=== PATIENT | male | born 1960 | race Caucasian/White ===

== ENCOUNTER → 2019-06-05 08:51 | Outpatient (CLI) | payer OTHER, SELFPAY ==
[2018-08-19 09:04] VITALS: BMI 31.9
--- NOTE | 2019-06-05 08:59 | MRI_ITS ---
STUDY: MRI CERVICAL SPINE WITH AND WITHOUT CONTRAST REASON FOR EXAM: Male, 58 years old. UPPER EXTREMITY WEAKNESS HEADACHES weakness since prev stroke 3 years ago , matamoros''s behind left eye, blurred vision, ? seizures, renal cancer 2005 TECHNIQUE: Standardized fat and water weighted pulse sequences were obtained in the sagittal and axial following administration of dotarem 18ml. COMPARISON: MRI of the cervical spine June 16, 2014, x-ray cervical spine June 13, 2015 FINDINGS: Normal foramen magnum and brainstem-cervical cord junction. Normal craniovertebral junction. Normal anterior atlantoaxial articulation. Normal odontoid process. There is straightening of the normal cervical lordosis. There is been prior surgical fusion with anterior cervical fusion plate across the C4-5 disc level. The vertebral bodies otherwise have an unremarkable appearance. C2-3: Normal endplates. Normal disc height, signal and morphology. Normal central canal and intervertebral neural foramina. C3-4: Normal endplates. Normal disc height, signal and morphology. Normal central canal and intervertebral neural foramina. C4-5: Normal endplates. Normal disc height, signal and morphology. Normal central canal and intervertebral neural foramina. C5-6: Normal endplates. Normal disc height, signal and morphology. Normal central canal and intervertebral neural foramina. Mild facet arthropathy. C6-7: Normal endplates. Disc height loss with a broad disc bulge is noted. This mildly flattens ventral aspect of the thecal sac but there is no evidence of significant central canal stenosis. AP diameter of the thecal sac is approximately 1 cm. There is minimal encroachment upon the neural foramina bilaterally. C7-T1: Normal endplates. Normal disc height, signal and morphology. Normal central canal and intervertebral neural foramina. Normal cervical cord. Normal visualized soft tissue structures. No abnormal enhancement MRI/Spine Cervical W/WO Contrast IMPRESSION: Intervening surgical intervention at C4-5 since prior study. No evidence of significant central or foraminal encroachment. No abnormal enhancement. Electronically Signed: Aishwarya Acevedo MD at 11:43 EST , Service support ,
--- NOTE | 2019-06-05 08:59 | MRI_ITS ---
STUDY: MRI BRAIN WITH AND WITHOUT CONTRAST REASON FOR EXAM: Male, 58 years old. WEAKNESS HEADACHES weakness since prev stroke 3 years ago , matamoros''s behind left eye, blurred vision, ? seizures, renal cancer 2005 TECHNIQUE: Standardized multiplanar fat and water weighted pulse sequences were obtained. dotarem 18ml iv was administered for the contrast portion of the examination. COMPARISON: CT brain October 13, 2015 FINDINGS: Normal size of the ventricles and extra-axial spaces for the patient''s age. There are multiple white matter hyperintensities, distributed throughout the deep white matter tracts of the cerebral hemispheres, consistent with moderate chronic white matter ischemic changes. There is a choroidal fissure cyst on the right, coronal image #16 series 4. There is no evidence for recent intracranial ischemia or other cause of cytotoxic edema on diffusion weighted imaging (DWI). Normal T2* images of the brain without demonstrated susceptibility artifact. There is no demonstrated hemosiderin stain. Normal bilateral basal ganglia. Normal thalami. There is no extra-axial fluid accumulation. Normal flow voids within the major intracranial circulation suggesting patency by spin echo criteria. Normal venous enhancement. There is no enhancing intra-axial or extra-axial abnormality. Normal sella turcica, pituitary gland, infundibular stalk, optic chiasm and hypothalamus. Normal tectal plate and pineal gland. Normal midbrain, vilma and medulla. Small old focal area of encephalomalacia, old infarct is noted in association with the posterior superior left cerebellar hemisphere. Normal basal cisterns. Normal bilateral temporal bones. Normal bilateral internal auditory canals. No demonstrated orbital abnormality, within the constraints of a routine brain study. Normal visualized paranasal sinuses. Normal calvarium and skull base. Normal visualized soft tissue structures. Normal visualized upper cervical spine. MRI/Brain W/WO Contrast IMPRESSION: Involutional changes of the brain, as described above. Old left superior cerebellar focal area of encephalomalacia, infarct. Right choroidal fissure cyst. No acute diffusion abnormality. No mass. No abnormal enhancement. Electronically Signed: Aishwarya Acevedo MD at 11:37 EST , Service support ,
[2019-06-05 11:30] LABS: CREATININE FINGERSTICK 1.1 mg/dL (0.70-1.30); EGFR FINGERSTICK > 60.0000 mL/min (>60)
== END ==
PROVIDERS: Family Provider Student in an Organized Health Care Education/Training Program; PCP Student in an Organized Health Care Education/Training Program; Referring Provider Clinical Nurse Specialist Acute Care; Visit Provider Clinical Nurse Specialist Acute Care
DX: R51 Headache (principal); R20.2 Paresthesia of skin; R29.898 Other symptoms and signs involving the musculoskeletal system; Z85.9 Personal history of malignant neoplasm, unspecified
CPT/HCPCS: 70553; 72156; A9575

== ENCOUNTER 2020-01-22 16:03 | Emergency (ER) | payer OTHER, SELFPAY ==
[2018-08-19 09:04] VITALS: BMI 31.9
[2020-01-22 16:05] VITALS: BP 168/90; PULSE 76; RESP 16; TEMP 36.6; O2SAT 97; BMI 31.6
[2020-01-22 16:07] VITALS: BP 162/110; PULSE 74; RESP 18; TEMP 36.6; O2SAT 96
--- NOTE | 2020-01-22 16:42 | EKG12_ITS ---
Test Reason : Blood Pressure : / mmHG Vent. Rate : 075 BPM Atrial Rate : 075 BPM P-R Int : 192 ms QRS Dur : 092 ms QT Int : 412 ms P-R-T Axes : 048 -11 060 degrees QTc Int : 460 ms Normal sinus rhythm Normal ECG Confirmed by NOLAN STONER MD ([id number]), acquisition editor TAYLOR SAN ([id number] on 01/25/2020 1:06:01 PM Referred By: AAKASH Confirmed By:NOLAN STONER MD
--- NOTE | 2020-01-22 16:42 | RAD_ITS ---
STUDY: X-RAY CHEST REASON FOR EXAM: Male, 59 years old. Chest pain. TECHNIQUE: Single AP portable view of the chest. COMPARISON: None. FINDINGS: Status post anterior cervical discectomy and fusion lower cervical spine. Status post median sternotomy. The lungs are clear and expanded. There is no demonstrated pleural abnormality. Normal size heart. Normal mediastinum and rob. Normal visualized pulmonary arteries. Normal visualized aortic arch and descending thoracic aorta. Normal visualized thoracic spine. Normal visualized ribs, clavicles, and shoulders. There is no demonstrated abnormality of the visualized soft tissue structures of the upper abdomen. RAD/Chest 1 View (Portable) IMPRESSION: No active disease. Electronically Signed: Gallo Nelson MD at 17:50 EDT Tel , Service support ,
[2020-01-22] MEDS: Lidocaine Jelly 2% 20 ML Syringe (URO-JET) 20 APPLIC TOPICAL (17:03)
[2020-01-22 17:07] VITALS: BP 174/114; PULSE 80; RESP 18; TEMP 36.6; O2SAT 95
[2020-01-22 17:13] LABS: Absolute Neutrophil Count 10.9 X10^3/uL (2.0-7.7); Basophil# 0.03 X10^3/uL; Basophil% 0.2 % (0-1); Eosinophil# 0.34 X10^3/uL; Eosinophils% 2.4 % (0-5); Hematocrit 38.8 % (40-54); Hemoglobin 13.4 g/dL (13.0-16.5); Lymphocyte % 12.1 % (19-41); Mean Corp Hgb Conc 34.5 g/dL (32-36); Mean Corpuscular Hgb 28.6 pg (27.0-32.0); Mean Corpuscular Volume 82.7 fL (80-94); Mean Platelet Vol. 10.7 fl (6.2-12.0); Monocyte% 7.1 % (0-10); NRBC Flagged by Analyzer 0 % (0-5); Neutrophil # 10.92 X10^3/uL (2.7-7.7); Neutrophil % 77.6 % (47-70); Platelet Count 175 K/mm3 (150-450); RBC Distribution Width CV 12.5 % (11.6-14.6); RBC Distribution Width SD 37.8 fl (35.1-43.9); Red Blood Count 4.69 M/mm3 (4.6-6.2); White Blood Count 14.1 K/mm3 (4.4-11.0)
[2020-01-22 17:34] LABS: ALB/GLOB Ratio 0.9 RATIO (0.9-2.4); AST(SGOT) 11 U/L (15-37); Alanine Aminotransfer ALT/SGPT 18 U/L (16-61); Albumin, Serum 3.4 g/dL (3.2-5.0); Alkaline Phosphatase 51 U/L (45-117); Anion Gap 10 (5-15); BUN 43 mg/dL (7-18); BUN/Creat Ratio 7.3 RATIO (10-20); Calcium,Total 8.4 mg/dL (8.5-10.1); Chloride 105 mmol/L (98-107); Creatinine, Serum 5.86 mg/dL (0.70-1.30); EST Glomerular Filtration Rate 11 mL/min (>60); Est Glom Filt Rate - Afr Amer 13 mL/min (>60); Estimated Creatinine Clearance 11.52 ml/min; Globulin 3.6 g/dL (2.2-4.2); Glucose 128 mg/dL (74-106); Potassium 3.4 mmol/L (3.5-5.1); Sodium Level 139 mmol/L (136-145)
--- NOTE | 2020-01-22 18:00 | CT_ITS ---
STUDY: CT ABDOMEN AND PELVIS WITHOUT CONTRAST REASON FOR EXAM: Male, 59 years old. RT FLANK PAIN,URINE RETENTION-PT HASN''T VOIDED IN 30 HRS -- HX:HTN,HLD,KIDNEY CANCER WITH LT NEPHRECTOMY,HERNIA REPAIR,HEART STENT,DISSECTION REPAIR RADIATION DOSAGE (If Supplied By Facility): CTDIvol = ( 11.82 ) mGy, DLP = ( 702.83 ) mGycm TECHNIQUE: Transaxial images were obtained from the dome of the diaphragm to the symphysis pubis without oral contrast, and without intravenous contrast. Sagittal and coronal images were reconstructed. Individualized dose optimization techniques were used for this CT. COMPARISON: 10/03/2015 FINDINGS: The visualized lung bases are unremarkable. The visualized portions of the heart are within normal limits. Multiple small hepatic lesions likely consistent with cysts. There are multiple gallstones. Normal spleen. Normal pancreas. Normal bilateral adrenal glands. 2 mm obstructing stone of the distal right ureter just proximal to the ureterovesical junction with mild ureteral dilatation, hydronephrosis, and perinephric edema. Status post left nephrectomy. Normal visualized stomach. Normal small intestine. Normal colon. The appendix is visualized and appears normal. Normal abdominal aorta. Normal inferior vena cava. Normal retroperitoneum. Normal urinary bladder. Normal abdominal wall. Normal osseous structures. CT/Abdomen/Pelvis without Cont IMPRESSION: 2 mm obstructing stone of the distal right ureter just proximal to the ureterovesical junction with mild ureteral dilatation and hydronephrosis. Electronically Signed: Gallo Nelson MD at 18:50 EDT Tel , Service support ,
[2020-01-22] MEDS: Morphine 4 MG/ML Syringe IV (18:08)
[2020-01-22 18:09] VITALS: BP 188/95; PULSE 84; RESP 16; O2SAT 97
[2020-01-22 19:07] VITALS: BP 175/108; PULSE 82; RESP 18; TEMP 36.6; O2SAT 96
--- NOTE | 2020-01-22 19:54 | ED.RN ---
ATTEMPTED TO CALL REPORT. HS SHIFT IS IN RAPID RESPONSE, THIS RN WAS ASKED TO CALL BACK LATER.
--- NOTE | 2020-01-22 20:04 | ED.VISSUMM ---
- ER Visit Summary Date of Service: 01/22/20 Chief Complaint: Not urinating History of Present Illness: The patient is a [address] Wright. He has a history of a left nephrectomy in 2006 and as far as he knows he is cancer free. He reports that he does not see a urologist or guide excursion. States that he last urinated yesterday at 10 AM. States he has a suprapubic pressure the 7-10 worsened to a 10 currently. Is worsened by nothing relieved by nothing. He also reports that he has a sharp right flank pain is 8 out of 10 at worst and to a out of 10 currently. Patient reports is been nausea and vomited twice. No blood in his emesis. He has had chills. He denies fever. Patient reports he had an episode of chest pain 2 weeks ago while he was at rest. It is a sharp pain last approximately 1 hour. It was 4-10 at worst and is pain-free currently. He reports he has not had any pain since that time. That states that he was diaphoretic and short of breath at that time. He denies any nausea or vomiting. Physical Examination: Vitals: Stable. Afebrile. General: Well-nourished and well-developed. Head: Normocephalic atraumatic. Neck: Supple, no lymphadenopathy. No JVD. Nontender. Cardiovascular: Regular rate and rhythm. No murmurs. Respiratory: No respiratory distress. Clear to auscultation bilaterally. Abdominal: Soft, moderate suprapubic tenderness to palpation, nondistended, normal bowel sounds. No guarding, rebound, or peritoneal signs. Back: Nontender. No CVA tenderness. Extremities: Nontender, no edema. Skin: Normal color, no rash. Neurologic: Alert and oriented ?3. Cranial nerves II through XII are intact. Normal strength and sensation. Psych: Normal affect. Test Results: EKG is sinus at [address] changes. Troponin is negative. LFTs are marked for an AST of 11. Chem-7 is marked potassium 3.4, glucose 128, UN 43, creatinine of 5.86. His creatinine since 2016 is been 1.28 at the highest. CBC shows a white count of 14.1 with hematocrit of 38.8, segmented for 78, lymphs at 12. Chest x-ray shows no acute disease. Clinical Impression(s) from Imaging Studies Chest X-Ray 01/22/20 16:42 IMPRESSION: No active disease. Electronically Signed: Gallo Nelson MD at 17:50 EDT Tel , Service support , Abdomen/Pelvis CT 01/22/20 18:00 IMPRESSION: 2 mm obstructing stone of the distal right ureter just proximal to the ureterovesical junction with mild ureteral dilatation and hydronephrosis. Electronically Signed: Gallo Nelson MD at 18:50 EDT Tel , Service support , Emergency Department Course and Treatment: Patient was given a dose of morphine and Zofran IV. He was given a liter of normal saline. He is resting comfortably. Treatment Plan: The patient was discussed with Dr. eusebio mayer. He reports that he will not be in town with patient needs intervention. He will discussed with the hospitalist who asked the patient be transferred to a tertiary care center. He chose [facility]. He was discussed with the physician there who is accepted him in transfer. Disposition: Transferred in serious condition. Impression: 1. Right ureterolithiasis. 2. Acute renal failure. 3. History of nephrectomy on left. This note was generated with [employer] dictation software. It may contain incorrect words, spelling, and punctuation that were not noted in review of the chart prior to signing ED Disposition - Plan for ED Patient: Referrals: Ryan Wright DO [Primary Care Provider] -
--- NOTE | 2020-01-22 21:04 | ED.RN ---
OK TO DC SEPSIS SCREENING.
[2020-01-22] MEDS: ALPRAZolam 0.5 MG Tablet PO (21:25)
[2020-01-22 22:00] VITALS: BP 141/80; PULSE 76; RESP 17; TEMP 36.9; O2SAT 97
== END 2020-01-22 22:44 | disposition short-term general hospital (02) ==
PROVIDERS: Emergency Provider Emergency Medicine; PCP Student in an Organized Health Care Education/Training Program
DX: N13.2 Hydronephrosis with renal and ureteral calculous obstruction (principal); N17.9 Acute kidney failure, unspecified; Z90.5 Acquired absence of kidney; R07.9 Chest pain, unspecified; I25.10 Atherosclerotic heart disease of native coronary artery without angina pectoris; I10 Essential (primary) hypertension; Z79.899 Other long term (current) drug therapy
CPT/HCPCS: 51702; 71045; 74176; 80053; 84484; 85025; 93005; 96361; 96374; 99285; J7040; A4216

== ENCOUNTER → 2020-01-29 | Outpatient (CLI) | payer OTHER, SELFPAY ==
[2020-01-22 16:05] VITALS: BMI 31.6
[2020-01-29 11:30] LABS: Anion Gap 3 (5-15); BUN 25 mg/dL (7-18); BUN/Creat Ratio 18.7 RATIO (10-20); Calcium,Total 8.8 mg/dL (8.5-10.1); Chloride 109 mmol/L (98-107); Creatinine, Serum 1.34 mg/dL (0.70-1.30); EST Glomerular Filtration Rate 58 mL/min (>60); Est Glom Filt Rate - Afr Amer 70 mL/min (>60); Glucose 95 mg/dL (74-106); Potassium 3.8 mmol/L (3.5-5.1); Sodium Level 140 mmol/L (136-145)
== END | disposition home or self-care (01) ==
PROVIDERS: PCP Student in an Organized Health Care Education/Training Program
DX: N13.5 Crossing vessel and stricture of ureter without hydronephrosis (principal)
CPT/HCPCS: 36415; 80048

== ENCOUNTER → 2020-02-24 08:55 | Outpatient (CLI) | payer OTHER, SELFPAY ==
[2020-02-24 10:04] LABS: 24HR. Urine Creatinine 1.61 g/24 HR (0.90-2.10)
[2020-02-24 10:05] LABS: 24Hr.Lytes Total Volume 1175 mL; Sodium 24 HR UR 166 mmol/24h (40-220); Urine Sodium 141 mmol/L (Not Establ.)
[2020-02-24 10:15] LABS: Anion Gap 5 (5-15); BUN 19 mg/dL (7-18); BUN/Creat Ratio 17.1 RATIO (10-20); Calcium,Total 8.8 mg/dL (8.5-10.1); Chloride 109 mmol/L (98-107); Creatinine, Serum 1.11 mg/dL (0.70-1.30); EST Glomerular Filtration Rate 72 mL/min (>60); Est Glom Filt Rate - Afr Amer 87 mL/min (>60); Glucose 111 mg/dL (74-106); Potassium 3.7 mmol/L (3.5-5.1); Sodium Level 141 mmol/L (136-145)
[2020-02-25 09:36] LABS: Uric Acid, Ur 40.7 mg/dL (Not Estab.)
[2020-02-25 10:06] LABS: Uric Acid, 24Ur 478.2 mg/24 hr (182.4-936.8)
[2020-03-02 09:23] LABS: Urine Chloride 158 mmol/L (Not Establ.); Urine Chloride / 24 Hours 186 mmol/24h (110-250); Urine Potassium/ 24 Hours 72.9 mmol/24h (25-125)
== END ==
PROVIDERS: PCP Student in an Organized Health Care Education/Training Program; Referring Provider Internal Medicine Nephrology; Visit Provider Internal Medicine Nephrology
DX: N18.2 Chronic kidney disease, stage 2 (mild) (principal); N13.30 Unspecified hydronephrosis
CPT/HCPCS: 36415; 80048; 81050; 82436; 82570; 84133; 84300; 84560

== ENCOUNTER → 2020-02-26 | Outpatient (CLI) | payer OTHER, SELFPAY | END | disposition home or self-care (01) | PROVIDERS: PCP Student in an Organized Health Care Education/Training Program | DX: N13.30 Unspecified hydronephrosis (principal) ==

== ENCOUNTER 2021-09-20 12:03 | Outpatient (CLI) | payer OTHER, SELFPAY ==
[2021-09-20 12:30] LABS: Absolute Lymphocyte Count 1.75 X10^3/uL (0.83-4.51); Absolute Neutrophil Count 7.6 X10^3/uL (2.0-7.7); Basophil# 0.04 X10^3/uL; Basophil% 0.4 % (0-1); Eosinophil# 0.67 X10^3/uL; Eosinophils% 6.2 % (0-5); Hematocrit 42.6 % (40-54); Hemoglobin 14.7 g/dL (13.0-16.5); Lymphocyte # 1.75 X10^3/ul (0.83-4.51); Lymphocyte % 16.1 % (19-41); Mean Corp Hgb Conc 34.5 g/dL (32-36); Mean Corpuscular Hgb 28.7 pg (27.0-32.0); Mean Platelet Vol. 10.3 fl (6.2-12.0); Monocyte# 0.78 X10^3/uL; Monocyte% 7.2 % (0-10); NRBC Flagged by Analyzer 0 % (0-5); Neutrophil # 7.61 X10^3/uL (2.7-7.7); Neutrophil % 69.7 % (47-70); Platelet Count 223 K/mm3 (150-450); RBC Distribution Width SD 39.2 fl (35.1-43.9); Red Blood Count 5.13 M/mm3 (4.6-6.2); White Blood Count 10.9 K/mm3 (4.4-11.0)
[2021-09-20 13:18] LABS: AST(SGOT) 13 U/L (15-37); Alanine Aminotransfer ALT/SGPT 17 U/L (16-61); Albumin, Serum 3.4 g/dL (3.2-5.0); Alkaline Phosphatase 41 U/L (45-117); Anion Gap 5 (5-15); BUN 21 mg/dL (7-18); BUN/Creat Ratio 17.1 RATIO (10-20); Bilirubin, Direct 0.15 mg/dL (0.00-0.30); Calcium,Total 9.6 mg/dL (8.5-10.1); Chloride 108 mmol/L (98-107); Creatinine, Serum 1.23 mg/dL (0.70-1.30); EST Glomerular Filtration Rate 63 mL/min (>60); Est Glom Filt Rate - Afr Amer 77 mL/min (>60); Globulin 3.5 g/dL (2.2-4.2); Glucose 91 mg/dL (74-106); Magnesium 2.2 mg/dL (1.6-2.6); Potassium 4.5 mmol/L (3.5-5.1); Protein, Total 6.9 g/dL (6.4-8.2); Sodium Level 141 mmol/L (136-145); Thyroid Stim Hormone (TSH) 1.34 uIU/mL (0.358-3.74)
== END 2021-09-20 23:59 | disposition home or self-care (01) ==
LOC: LAB 12:04
PROVIDERS: PCP Student in an Organized Health Care Education/Training Program; Referring Provider Internal Medicine Cardiovascular Disease; Visit Provider Internal Medicine Cardiovascular Disease
DX: I10 Essential (primary) hypertension (principal); Z95.5 Presence of coronary angioplasty implant and graft
CPT/HCPCS: 36415; 80048; 80076; 83735; 84443; 85025

== ENCOUNTER → 2021-11-13 | Outpatient (CLI) | payer OTHER, SELFPAY ==
--- NOTE | 2021-11-13 12:47 | ECHOD_ITS ---
Reason For Study: Assess LV function Procedure This was a 2D Doppler, Color Flow transthoracic echocardiogram. Exam performed in department. Left Ventricle Normal LV size. Mild concentric left ventricular hypertrophy. Left ventricular systolic function is normal. The estimated ejection fraction is 60 %. Stage 1 diastolic dysfunction. No regional wall motion abnormalities noted. Right Ventricle Normal right ventricle. Normal systolic function. Atria Normal left atrium. Normal right atrium. Mitral Valve Normal mitral valve. Mild (1+) eccentric mitral valve insufficiency. Tricuspid Valve Normal tricuspid valve. Mild tricuspid valve insufficiency. Aortic Valve Normal aortic valve. Trisinus/trileaflet aortic valve. Trivial eccentric aortic valve insufficiency. Pulmonic Valve Normal pulmonic valve. Great Vessels Normal aortic root. Pericardium/Pleural No pericardial effusion. MMode/2D Measurements & Calculations LVIDd: 4.0 cm IVSd: 1.4 cm Ao root diam: 3.2 cm LVIDs: 2.6 cm LVPWd: 1.3 cm RVDd: 3.6 cm FS: 35.5 % LAV(MOD-bp): 51.4 ml LVAd ap4: 28.8 cm2 LVAd ap2: 26.0 cm2 LAV(MOD-bp) Indexed: 27.2 ml/m2 LVLd ap4: 8.2 cm LVLd ap2: 8.6 cm LAV(MOD-sp2): 55.5 ml EDV(MOD-sp4): 84.9 ml EDV(MOD-sp2): 67.8 ml LAV(MOD-sp4): 42.4 ml EDV(sp4-el): 85.8 ml EDV(sp2-el): 67.0 ml LVAs ap4: 15.9 cm2 LVAs ap2: 14.1 cm2 LVLs ap4: 7.1 cm LVLs ap2: 7.3 cm ESV(MOD-sp4): 31.4 ml ESV(MOD-sp2): 23.9 ml ESV(sp4-el): 30.3 ml ESV(sp2-el): 23.1 ml EF(MOD-sp4): 63.0 % EF(MOD-sp2): 64.8 % EF(sp4-el): 64.6 % SV(MOD-sp4): 53.6 ml SV(MOD-sp2): 43.9 ml SV(sp4-el): 55.4 ml LA dimension(2D): 5.0 cm LA A4 area: 15.5 cm2 RA A4 area: 15.3 cm2 Doppler Measurements & Calculations MV E max lázaro: 88.8 cm/sec Lat Peak E' Lázaro: 9.9 cm/sec Med Peak E' Lázaro: 6.7 cm/sec MV A max lázaro: 98.2 cm/sec E/E' lat: 9.0 E/E' med: 13.3 MV E/A: 0.90 Ao V2 max: 116.4 cm/sec AI max lázaro: 391.4 cm/sec PA V2 max: 134.0 cm/sec Ao max P.4 mmHg AI max P.4 mmHg AI dec slope: 205.2 cm/sec2 AI P1/2t: 558.8 msec TR max lázaro: 206.6 cm/sec TR max P.2 mmHg ECHO/Echo Complete Interpretation Summary Normal LV size. Left ventricular systolic function is normal. The estimated ejection fraction is 60 %. Mild concentric left ventricular hypertrophy. Mild tricuspid valve insufficiency. Stage 1 diastolic dysfunction. Ordering Physician: Quinten Hall Referring Physician: Ryan Wright Performed By: Rose Shea RDCS
== END | disposition home or self-care (01) ==
PROVIDERS: PCP Student in an Organized Health Care Education/Training Program; Referring Provider Internal Medicine Cardiovascular Disease; Visit Provider Internal Medicine Cardiovascular Disease
DX: I25.10 Atherosclerotic heart disease of native coronary artery without angina pectoris (principal); I10 Essential (primary) hypertension; E78.00 Pure hypercholesterolemia, unspecified; E78.5 Hyperlipidemia, unspecified; R53.83 Other fatigue; R06.00 Dyspnea, unspecified; Z98.890 Other specified postprocedural states; Z86.79 Personal history of other diseases of the circulatory system
CPT/HCPCS: 93306

== ENCOUNTER → 2021-12-18 | Outpatient (CLI) | payer OTHER, SELFPAY ==
[2021-12-18 17:32] LABS: Anion Gap 8 (5-15); BUN 26 mg/dL (7-18); BUN/Creat Ratio 18.8 RATIO (10-20); Calcium,Total 8.9 mg/dL (8.5-10.1); Chloride 106 mmol/L (98-107); Creatinine, Serum 1.38 mg/dL (0.70-1.30); EST Glomerular Filtration Rate 55 mL/min (>60); Est Glom Filt Rate - Afr Amer 67 mL/min (>60); Glucose 130 mg/dL (74-106); Potassium 3.3 mmol/L (3.5-5.1); Sodium Level 140 mmol/L (136-145)
== END | disposition home or self-care (01) ==
LOC: LAB 15:46
PROVIDERS: PCP Student in an Organized Health Care Education/Training Program; Referring Provider Internal Medicine Cardiovascular Disease; Visit Provider Internal Medicine Cardiovascular Disease
DX: M79.10 Myalgia, unspecified site (principal); R53.83 Other fatigue; R06.00 Dyspnea, unspecified; I25.10 Atherosclerotic heart disease of native coronary artery without angina pectoris; Z95.5 Presence of coronary angioplasty implant and graft; Z98.890 Other specified postprocedural states; Z86.79 Personal history of other diseases of the circulatory system
CPT/HCPCS: 36415; 80048

== ENCOUNTER → 2022-01-04 | Outpatient (CLI) | payer OTHER, SELFPAY ==
[2022-01-04 12:42] LABS: Anion Gap 6 (5-15); BUN 22 mg/dL (7-18); BUN/Creat Ratio 17.5 RATIO (10-20); Calcium,Total 8.9 mg/dL (8.5-10.1); Chloride 106 mmol/L (98-107); Creatinine, Serum 1.26 mg/dL (0.70-1.30); EST Glomerular Filtration Rate 61 mL/min (>60); Est Glom Filt Rate - Afr Amer 74 mL/min (>60); Glucose 101 mg/dL (74-106); Sodium Level 140 mmol/L (136-145)
== END | disposition home or self-care (01) ==
LOC: LAB 11:04
PROVIDERS: PCP Student in an Organized Health Care Education/Training Program; Visit Provider Physician Assistant Medical
DX: I10 Essential (primary) hypertension (principal)
CPT/HCPCS: 36415; 80048

== ENCOUNTER → 2022-09-07 | Outpatient (CLI) | payer OTHER, SELFPAY ==
[2022-09-07 08:50] LABS: Absolute Lymphocyte Count 1.98 X10^3/uL (0.83-4.51); Absolute Neutrophil Count 6.9 X10^3/uL (2.0-7.7); Basophil# 0.06 X10^3/uL; Basophil% 0.6 % (0-1); Eosinophil# 0.84 X10^3/uL; Eosinophils% 7.9 % (0-5); Hematocrit 42.2 % (40-54); Hemoglobin 14.4 g/dL (13.0-16.5); Lymphocyte # 1.98 X10^3/ul (0.83-4.51); Lymphocyte % 18.7 % (19-41); Mean Corp Hgb Conc 34.1 g/dL (32-36); Mean Corpuscular Hgb 29.4 pg (27.0-32.0); Mean Corpuscular Volume 86.3 fL (80-94); Mean Platelet Vol. 10.4 fl (6.2-12.0); Monocyte# 0.71 X10^3/uL; Monocyte% 6.7 % (0-10); NRBC Flagged by Analyzer 0 % (0-5); Neutrophil # 6.94 X10^3/uL (2.7-7.7); Neutrophil % 65.5 % (47-70); Platelet Count 222 K/mm3 (150-450); RBC Distribution Width SD 40.5 fl (35.1-43.9); Red Blood Count 4.89 M/mm3 (4.6-6.2); White Blood Count 10.6 K/mm3 (4.4-11.0)
[2022-09-07 09:12] LABS: Hemoglobin A1c 5.2 % (3.8-5.6)
[2022-09-07 09:21] LABS: AST(SGOT) 9 U/L (15-37); Alanine Aminotransfer ALT/SGPT 15 U/L (16-61); Albumin, Serum 3.5 g/dL (3.2-5.0); Alkaline Phosphatase 47 U/L (45-117); Anion Gap 5 (5-15); BUN 23 mg/dL (7-18); BUN/Creat Ratio 17.7 RATIO (10-20); Calcium,Total 9.4 mg/dL (8.5-10.1); Chloride 104 mmol/L (98-107); Cholesterol 226 mg/dL (200); EST Glomerular Filtration Rate 59 mL/min (>60); Est Glom Filt Rate - Afr Amer 72 mL/min (>60); Globulin 3.6 g/dL (2.2-4.2); Glucose 108 mg/dL (74-106); High Density Lipoprotein 38 mg/dL; Magnesium 2.2 mg/dL (1.6-2.6); Potassium 3.3 mmol/L (3.5-5.1); Protein, Total 7.1 g/dL (6.4-8.2); Sodium Level 141 mmol/L (136-145); T4 Free Direct 1.06 ng/dL (0.76-1.46); Thyroid Stim Hormone (TSH) 1.26 uIU/mL (0.358-3.74); Triglycerides 249 mg/dL; Very Low Density Lipoprotein 50 mg/dL (5-40)
[2022-09-07 09:25] LABS: Vitamin B12 425 pg/mL (211-911); Vitamin D,25 Hydroxy 29.7 ng/mL
== END | disposition home or self-care (01) ==
PROVIDERS: PCP Student in an Organized Health Care Education/Training Program; Visit Provider Student in an Organized Health Care Education/Training Program
DX: Z00.00 Encounter for general adult medical examination without abnormal findings (principal); E78.2 Mixed hyperlipidemia; R73.01 Impaired fasting glucose
CPT/HCPCS: 36415; 80053; 80061; 82306; 82607; 83036; 83735; 84439; 84443; 85025

== ENCOUNTER → 2023-08-07 | Outpatient (CLI) | payer OTHER, SELFPAY ==
[2023-08-07 16:15] LABS: Hematocrit 43.1 % (40-54); Hemoglobin 14.5 g/dL (13.0-16.5); Mean Corp Hgb Conc 33.6 g/dL (32-36); Mean Corpuscular Hgb 28.5 pg (27.0-32.0); Mean Corpuscular Volume 84.8 fL (80-94); Mean Platelet Vol. 10.7 fl (6.2-12.0); Platelet Count 276 K/mm3 (150-450); RBC Distribution Width CV 12.8 % (11.6-14.6); RBC Distribution Width SD 39.4 fl (35.1-43.9); Red Blood Count 5.08 M/mm3 (4.6-6.2)
[2023-08-07 17:22] LABS: Anion Gap 4 (5-15); BUN 25 mg/dL (7-18); BUN/Creat Ratio 16.4 RATIO (10-20); Calcium,Total 9.3 mg/dL (8.5-10.1); Chloride 108 mmol/L (98-107); Creatinine, Serum 1.52 mg/dL (0.70-1.30); EST Glomerular Filtration Rate 49 mL/min (>60); Est Glom Filt Rate - Afr Amer 60 mL/min (>60); Glucose 109 mg/dL (74-106); Potassium 3.8 mmol/L (3.5-5.1); Sodium Level 141 mmol/L (136-145)
== END | disposition home or self-care (01) ==
PROVIDERS: PCP Student in an Organized Health Care Education/Training Program; Referring Provider Internal Medicine Interventional Cardiology; Visit Provider Internal Medicine Interventional Cardiology
DX: I25.119 Atherosclerotic heart disease of native coronary artery with unspecified angina pectoris (principal)
CPT/HCPCS: 36415; 80048; 85027

== ENCOUNTER → 2023-08-27 | Outpatient (CLI) | payer OTHER, SELFPAY ==
--- OUTSIDE RECORDS SUMMARY | 2023-08-27 06:27 | XMS RPT_ITS | CCD ---
Author Name Unknown Address [address] [place] [address] Organization [facility] Care Team Providers Care Technology Officer Name Role Phone Samira Muñoz Unavailable Unavailable Roverto Atkinson Unavailable Unavailable Ryan Mesa Unavailable Unavailable Tanphaichitr, Natthavat Unavailable Unavaila Bon Garduno Unavailable Keron Butler Unavailable Unavailable Marisela Romero S Unavailable Unavailable Bebeto Oshea Unavailable Unavailable Ryan Mesa Primary Care Provider Unavail able Tanphaichitr, Natthavat Unavailable Unavaila Bon Garduno Unavailable Keron Butler Unavailable Unavailable Marisela Romero S Unavailable Unavailable Bebeto Oshea F Unavailable Unavailable Unavailable Primary Care Provider Unavailabl e Ryan Mesa Primary Care Provider RYAN MESA Referring Unavailable RYAN MESA Primary Care Unavailable AN GARCIA JR. Attending Unavail able Ryan Mesa DO Primary Care Provider Ryan Mesa DO Primary Care Provider RYAN MESA Attending Unavailable RYAN MESA Primary Care Unavailable Ryan Mesa Primary Care Provider PEG REIS Attending Unavailable RYAN MESA Primary Care Unavailable PEG REIS Admitting Unavailable PEG REIS Attending Unavailable RYAN MESA Primary Care Unavailable Allergies Allergy Classification Reported Allergen(s) Allergy Type Date of Onset Reaction(s) Facility (2 sources) amLODIPine drug allergy 03-01-20 16 High BP/confusion [facility] Work Phone: (2 sources) Gluten drug allergy 10-25-19 16 Vomiting [facility] Work Phone: (14 sources) metoprolol drug allergy 10-25-19 16 HIVES [facility] Work Phone: (20 sources) sertraline drug allergy 10-10-19 16 Hives, Confusion, Dizzy/Vertigo, Drowsy/Sedated , Other (See Comments) [facility] Work Phone: (2 sources) Sulfonamides (Antibiotic) drug allergy 03-01-20 16 mental status changes [facility] Work Phone: (18 sources) carvedilol Drug Allergy 10-04-19 18 [facility] Work Phone: (20 sources) Erythromycin; Translations: [ERYTHROMYCIN] Drug Allergy 02-05-20 06 Headache, Hives [facility] Work Phone: (18 sources) hydrALAZINE Drug Allergy 10-04-19 18 [facility] Work Phone: (16 sources) Lisinopril Drug Allergy 10-04-19 18 [facility] Work Phone: (20 sources) NIFEdipine; Translations: [NIFEDIPINE] Drug Allergy 01-20-20 14 Vomiting [facility] Work Phone: (18 sources) Sulfonamides (Antibiotic) Propensity to adverse reactions to drug 03-01-20 16 Hives, Confusion, Headache, Other (See Comments) [facility] Work Phone: (16 sources) amLODIPine; Translations: [AMLODIPINE] Drug Allergy 02-24-20 14 GI Upset [place] (3 sources) Angiotensin Converting Enzyme ([place]) Inhibitors; Translations: [PERNELL INHIBITORS] Propensity to adverse reactions to drug 07-06-19 15 [place] (2 sources) Wheat gluten extract Drug Allergy 10-25-19 16 [facility], [place] (3 sources) Angiotensin-conver ting enzyme inhibitor agent Drug Intolerance 07-06-19 15 GI Upset [facility] Work Phone: (3 sources) ANTIHISTAMINES - ALL [Other] Propensity to adverse reactions 03-03-20 08 [facility] Work Phone: (3 sources) BLOOD PRESSURE MEDICATIONS [Other] Propensity to adverse reactions 05-07-20 05 [facility] (3 sources) DEPRESSION MEDICATIONS [Other] Propensity to adverse reactions 05-07-20 05 [facility] (1 source) OTHER; Translations: [OTHER] Propensity to adverse reactions (disorder) 03-03-20 08 [facility] (10 sources) Angiotensin-conver ting enzyme inhibitor agent Drug Intolerance 07-06-19 15 [facility] [employer] (10 sources) Gluten Propensity to adverse reactions 10-25-19 16 [facility] [employer] [facility] (10 sources) HMG-CoA reductase inhibitor Drug Allergy 09-21-19 22 [facility] [employer] [facility] (10 sources) Nifedipine Propensity to adverse reactions 01-20-20 14 [facility] [employer] (10 sources) Sulfonamides (Antibiotic) Drug Intolerance 03-01-20 16 Headache, [facility] Medications Current Medications Medication Drug Class(es) Dates Sig (Normalized) Sig (Original) ALPRAZolam 1 mg oral tablet (20 sources) Benzodiazepine Start: 09-05-2022 End: 10-05-2022 take 1 tablet by mouth every twelve hours as needed for anxiety and anxiety ALPRAZolam (XANAX) 1 mg tablet Indications: Situational anxiety Take 1 tablet by mouth twice daily as needed for anxiety for up to 30 days. 60 tablet 5 09/05/2022 10/05/2022 Active Completed/Discontinued Medications Medication Drug Class(es) Dates Sig (Normalized) Sig (Original) acetaminophen 325 mg oral tablet (20 sources) Start: 08-15-2023 End: 08-15-2023 take 1 tablet by mouth every four hours as needed for pain 650 mg, Oral, Every 4 hours PRN, mild pain (1-3), Fever > 100.5 F (38 C), Starting on Mandy 08/15/23 at 1334, [facility], Maximum dose of acetaminophen is 4000 mg from all sources in 24 hours. Problems Active Problems Problem Classification Problem Date Documented Date Episodic/Chronic Abdominal hernia (3 sources) Hiatal hernia; Translations: [Diaphragmatic hernia without obstruction or gangrene] 10-05-2009 Episodic Acute and unspecified renal failure (3 sources) Acute injury of kidney; Translations: [CY (acute kidney injury) (HCC)] Onset: 01-23-2020 01-23-2020 Acute cerebrovascular disease (18 sources) Cerebral infarction, unspecified; Translations: [Ischemic stroke] Onset: 10-13-2015 10-13-2015 Chronic Acute cerebrovascular disease (2 sources) Acute cerebrovascular disease; Translations: [Cerebellar stroke] Onset: 10-13-2015 10-13-2015 Anxiety disorders (20 sources) Posttraumatic stress disorder; Translations: [Anxiety] Onset: 10-05-2017 10-05-2017 Chronic Aortic; peripheral; and visceral artery aneurysms (20 sources) Dissection of aorta; Translations: [Dissection of abdominal aorta] Onset: 10-04-2015 10-27-2015 Chronic Asthma (10 sources) Asthma; Translations: [Unspecified asthma, uncomplicated] Onset: 07-29-2023 07-29-2023 Chronic Cancer of kidney and renal pelvis (3 sources) Malignant tumor of kidney; Translations: [Malignant neoplasm of unspecified kidney, except renal pelvis] Onset: 05-23-2005 05-23-2005 Chronic Coronary atherosclerosis and other heart disease (20 sources) Coronary atherosclerosis; Translations: [Atherosclerotic heart disease of [place] coronary artery without angina pectoris] Onset: 12-12-2015 Resolved: 11-22-2017 08-16-2016 Chronic Coronary atherosclerosis and other heart disease (4 sources) Stented coronary artery; Translations: [Presence of coronary angioplasty implant and graft] Onset: 08-15-2023 08-15-2023 Episodic Digestive congenital anomalies (1 source) Finding of esophagus; 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] Onset: 10-10-2017 10-10-2017 Chronic Disorders of lipid metabolism (17 sources) Hypercholesterolemia; Translations: [Pure hypercholesterolemia, unspecified] Onset: 03-23-2014 03-23-2014 Chronic Essential hypertension (20 sources) Hypertensive disorder; Translations: [Essential hypertension] Onset: 03-23-2014 10-25-2015 Chronic Genitourinary congenital anomalies (10 sources) Absent kidney; Translations: [Solitary kidney] Onset: 03-24-2020 04-13-2022 Chronic Hyperplasia of prostate (13 sources) Benign prostatic hyperplasia; Translations: [Benign prostatic hyperplasia with lower urinary tract symptoms] Onset: 10-11-2020 10-11-2020 Chronic Malignant neoplasm without specification of site (10 sources) Malignant neoplastic disease; Translations: [Malignant (primary) neoplasm, unspecified] Onset: 07-29-2023 07-29-2023 Chronic Mood disorders (16 sources) Depressive disorder; Translations: [Depression] Onset: 10-05-2017 10-05-2017 Chronic Other diseases of kidney and ureters (3 sources) Occlusion of ureter; Translations: [Obstruction of right ureter] 01-23-2020 Episodic Other endocrine disorders (3 sources) Male hypogonadism; Translations: [Testicular hypofunction] Onset: 07-03-2010 07-03-2010 Chronic Other inflammatory condition of skin (3 sources) Psoriasis; Translations: [Other psoriasis] Onset: 03-04-2008 03-04-2008 Chronic Other nutritional; endocrine; and metabolic disorders (2 sources) Body mass index (BMI) 30.0-30.9, adult; Translations: [Body mass index (BMI) 30.0-30.9, adult] Onset: 03-01-2016 08-16-2016 Chronic Other nutritional; endocrine; and metabolic disorders (15 sources) Obesity, unspecified; Translations: [Obesity (BMI 30.0-34.9)] Onset: 10-03-2017 10-03-2017 Chronic Other nutritional; endocrine; and metabolic disorders (1 source) Obese class I; Translations: [Obesity (BMI 30.0-34.9)] Onset: 10-03-2017 10-03-2017 Residual codes; unclassified (13 sources) Sleep apnea; Translations: [Sleep apnea, unspecified] Onset: 06-14-2005 06-14-2005 Chronic Residual codes; unclassified (2 sources) History of repair of thoracic aortic aneurysm; Translations: [Other specified postprocedural states] 08-09-2023 Episodic Unclassified (2 sources) Obstructive sleep apnea syndrome; Translations: [Obstructive sleep apnea (adult) (pediatric)] Onset: 10-25-2015 10-25-2015 Chronic Unclassified (16 sources) History of nephrectomy; Translations: [H/O unilateral nephrectomy] Onset: 11-23-2017 11-23-2017 Past or Other Problems Problem Classification Problem Date Documented Da te Episodic/Chronic Abdominal pain (13 sources) Right flank pain; Translations: [Unspecified abdominal pain] Onset: 03-24-2020 04-13-2020 Episodic Acute and unspecified renal failure (13 sources) Acute injury of kidney; Translations: [Acute kidney failure, unspecified] Onset: 01-23-2020 04-13-2020 Episodic Allergic reactions (3 sources) Radiation-induced dermatosis; Translations: [Other skin changes due to chronic exposure to nonionizing radiation] Onset: 03-04-2008 03-04-2008 Episodic Biliary tract disease (6 sources) Cholelithiasis without obstruction; Translations: [Calculus of gallbladder without cholecystitis without obstruction] Onset: 12-12-2018 12-12-2018 Episodic Calculus of urinary tract (13 sources) Ureteric stone; Translations: [Calculus of ureter] Onset: 01-23-2020 01-23-2020 Episodic Cancer of kidney and renal pelvis (3 sources) History of malignant neoplasm of kidney; Translations: [Personal history of other malignant neoplasm of kidney] Onset: 03-23-2014 03-23-2014 Episodic Diabetes mellitus without complication (4 sources) Hyperglycemia; Translations: [Impaired fasting glucose] Onset: 06-09-2018 06-09-2018 Episodic Esophageal disorders (15 sources) Other specified diseases of esophagus; 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] Onset: 10-10-2017 10-10-2017 Episodic Fluid and electrolyte disorders (19 sources) Metabolic acidosis; Translations: [Hypokalemia] Onset: 03-23-2014 11-18-2015 Episodic Gastritis and duodenitis (3 sources) Gastritis; Translations: [Gastritis, unspecified, without bleeding] Onset: 06-09-2009 06-09-2009 Episodic Genitourinary symptoms and ill-defined conditions (20 sources) H/O: urinary disease; Translations: [Retention of urine] Onset: 03-23-2014 Resolved: 11-22-2017 11-23-2017 Episodic Heart valve disorders (2 sources) Heart murmur; Translations: [Cardiac murmur, unspecified] Onset: 10-27-2015 10-27-2015 Episodic Hypertension with complications and secondary hypertension (16 sources) Hypertensive urgency ; Translations: [Hypertensive urgency] Onset: 10-03-2017 Resolved: 06-17-2018 10-03-2017 Chronic Nonspecific chest pain (16 sources) Chest pain; Translations: [Chest pain] Onset: 11-16-2015 Resolved: 11-22-2017 11-22-2017 Episodic Other and unspecified benign neoplasm (3 sources) Benign neoplasm of skin of lower limb; Translations: [Other benign neoplasm of skin of unspecified lower limb, including hip] Onset: 02-07-2009 02-07-2009 Episodic Other circulatory disease (2 sources) Carotid bruit; Translations: [Other specified symptoms and signs involving the circulatory and respiratory systems] Onset: 10-27-2015 10-27-2015 Episodic Other circulatory disease (19 sources) History of cerebrovascular accident; Translations: [Personal history of transient ischemic attack (TIA), and cerebral infarction without residual deficits] Onset: 11-18-2015 11-18-2015 Episodic Other circulatory disease (3 sources) H/O: cardiovascular disease; Translations: [Personal history of other diseases of the circulatory system] Onset: 10-11-2020 10-11-2020 Episodic Other connective tissue disease (3 sources) Calcaneal spur; Translations: [Calcaneal spur, unspecified foot] Onset: 07-08-2008 07-08-2008 Episodic Other diseases of kidney and ureters (12 sources) Hydronephrosis; Translations: [Unspecified hydronephrosis] Onset: 02-10-2020 02-10-2020 Episodic Other diseases of kidney and ureters (10 sources) Obstruction of ureter; Translations: [Crossing vessel and stricture of ureter without hydronephrosis] Onset: 01-23-2020 04-13-2022 Episodic Other gastrointestinal disorders (16 sources) Esophageal dysphagia; Translations: [Esophageal dysphagia] Onset: 10-10-2017 10-10-2017 Episodic Other gastrointestinal disorders (16 sources) Dysphagia; Translations: [Dysphagia] Onset: 10-05-2017 Resolved: 11-22-2017 11-22-2017 Episodic Other inflammatory condition of skin (3 sources) Lichen simplex chronicus; Translations: [Lichen simplex chronicus] Onset: 03-04-2008 03-04-2008 Episodic Other inflammatory condition of skin (3 sources) Pruritus of skin; Translations: [Pruritus, unspecified] Onset: 03-04-2008 03-04-2008 Episodic Other injuries and conditions due to external causes (3 sources) Superficial injury; Translations: [Unspecified multiple injuries, initial encounter] Onset: 03-04-2008 03-04-2008 Episodic Other liver diseases (15 sources) Abnormal levels of other serum enzymes; Translations: [Elevated troponin] Onset: 11-18-2015 Resolved: 11-22-2017 11-22-2017 Episodic Other nutritional; endocrine; and metabolic disorders (3 sources) Body mass index (BMI) 29.0-29.9, adult; Translations: [Body mass index (BMI) 27.0-27.9, adult] Onset: 03-01-2016 06-01-2016 Episodic Other skin disorders (3 sources) Disorder of sebaceous gland; Translations: [Other specified follicular disorders] Onset: 03-04-2008 03-04-2008 Episodic Other skin disorders (3 sources) Disorder of skin and/or subcutaneous tissue; Translations: [Disorder of the skin and subcutaneous tissue, unspecified] Onset: 01-13-2009 01-13-2009 Episodic Residual codes; unclassified (3 sources) Reduced libido; Translations: [Decreased libido] Onset: 06-19-2010 06-19-2010 Episodic Residual codes; unclassified (3 sources) History of nephrectomy; Translations: [Acquired absence of kidney] Onset: 03-23-2014 03-23-2014 Episodic Residual codes; unclassified (3 sources) Bilateral lower limb edema; Translations: [Localized edema] Onset: 11-12-2017 11-12-2017 Episodic Septicemia (except in labor) (16 sources) Sepsis; Translations: [Sepsis] Onset: 11-18-2015 11-18-2015 Episodic Spondylosis; intervertebral disc disorders; other back problems (3 sources) Backache; Translations: [Dorsalgia, unspecified] Onset: 07-27-2014 06-26-2021 Episodic Unclassified (1 source) Body mass index (BMI) 27.0-27.9, adult; Translations: [Body mass index (BMI) 27.0-27.9, adult] Onset: 03-01-2016 03-01-2016 Episodic Unclassified (1 source) Protein level - finding; Translations: [Elevated troponin] Onset: 11-18-2015 Resolved: 11-22-2017 11-22-2017 Urinary tract infections (16 sources) Urinary tract infectious disease; Translations: [UTI (urinary tract infection)] Onset: 11-18-2015 11-18-2015 Episodic Viral infection (3 sources) Verruca vulgaris; Translations: [Viral wart, unspecified] Onset: 03-04-2008 03-04-2008 Episodic Results Test Name Value Interpretation Reference Range Facil ity Vital Signs Date Time Vital Sign Value Performing Clinician Faci lity 08-15-2023 15:00-0500 Heart rate 70 /min Peg Preston Work Phone: [facility] [employer] 08-15-2023 15:00-0500 Respiratory rate 26 /min Peg Preston Work Phone: [facility] [employer] 08-15-2023 14:15-0500 Diastolic blood pressure 98 mm[Hg] Peg Reis MD Work Phone: [facility] 08-15-2023 14:15-0500 Systolic blood pressure 168 mm[Hg] Peg Reis MD Work Phone: [facility] [employer] 08-15-2023 10:53-0500 Body temperature 97.5 [degF] Peg Preston Work Phone: [facility] [employer] 08-15-2023 10:53-0500 SaO2% (BldA) [Mass fraction] 100 % Peg Reis MD Work Phone: [facility] [employer] 08-15-2023 08:35-0500 Body height 165.1 cm Peg Preston Work Phone: [facility] [employer] 08-15-2023 08:35-0500 Body mass index (BMI) [Ratio] 30.79 kg/m2 Peg Reis MD Work Phone: [facility] [employer] 08-15-2023 08:35-0500 Body weight 83.92 kg Peg Preston Work Phone: [facility] [employer] 08-07-2023 13:29-0500 Diastolic blood pressure 98 mm[Hg] Peg Reis MD Work Phone: [facility] [employer] 08-07-2023 13:29-0500 Systolic blood pressure 178 mm[Hg] Peg Reis MD Work Phone: [facility] [employer] 08-07-2023 13:04-0500 Body height 165.1 cm Peg Preston Work Phone: [facility] 08-07-2023 13:04-0500 Body mass index (BMI) [Ratio] 30.82 kg/m2 Peg Reis MD Work Phone: [facility] 08-07-2023 13:04-0500 Body weight 84.01 kg Peg Preston Work Phone: [facility] 08-07-2023 13:04-0500 Heart rate 73 /min Peg Preston Work Phone: [facility] 08-07-2023 13:04-0500 SaO2% (BldA) [Mass fraction] 96 % Peg Reis MD Work Phone: [facility] 09-05-2022 14:05-0500 Body height 167 cm Ryan Mesa DO Work Phone: [facility] 09-05-2022 14:05-0500 Body temperature 97.59 [degF] Ryan Mesa DO Work Phone: [facility] 09-05-2022 14:05-0500 Body weight 87.09 kg Ryan Mesa DO Work Phone: [facility] 09-05-2022 14:05-0500 Diastolic blood pressure 80 mm[Hg] Ryan Mesa DO Work Phone: [facility] 09-05-2022 14:05-0500 Heart rate 64 /min Ryan Mesa DO Work Phone: [facility] 09-05-2022 14:05-0500 Respiratory rate 16 /min Ryan Mesa DO Work Phone: [facility] 09-05-2022 14:05-0500 Systolic blood pressure 136 mm[Hg] Ryan Mesa DO Work Phone: [facility] 01-24-2020 11:26-0400 Body Temperature 96.91 [degF] Inderpartap Lauritanguremary jane Nguyen [facility] [place], [place] 01-24-2020 11:26-0400 BP Diastolic 83 mm[Hg] Inderpartap Phangureh Yohana [facility], [place] 01-24-2020 11:26-0400 BP Systolic 141 mm[Hg] Inderpartap Lauritangureh Yohana [facility], [place] 01-24-2020 11:26-0400 Pulse (Heart Rate) 66 /min Inderpartap Lauritangureh Yohana Palomares [facility], [place] 01-24-2020 11:26-0400 Pulse Oximetry 96 % Inderpartap Yovaniuremary jane Muller [facility], [place] 01-24-2020 11:26-0400 Respiratory Rate 18 /min Inderpartap Yovaniuremary jane Nguyen [facility] [place] [place] 01-22-2020 23:45-0400 BMI (Body Mass Index) 32.6 kg/m2 Oraerpartap Gertrude Muller [facility], [place] 01-22-2020 23:45-0400 Body weight 88.86 kg Oraerpartap Pita Yohana [facility], [place] 01-22-2020 23:45-0400 Height 165.1 cm Malissa Muller [facility], [place] 05-16-2018 12:57-0500 BMI (Body Mass Index) 32.25 kg/m2 [facility] Work Phone: 05-16-2018 12:57-0500 BP Diastolic 72 mm[Hg] [facility] Work Phone: 05-16-2018 12:57-0500 BP Systolic 130 mm[Hg] [facility] Work Phone: 05-16-2018 12:57-0500 Height 167.6 cm [facility] Work Phone: 05-16-2018 12:57-0500 Pulse (Heart Rate) 86 /min [facility]ella [facility] Work Phone: 05-16-2018 12:57-0500 Weight 90.63 kg Angella Torres [facility] Work Phone: 12-10-2016 15:59-0400 BMI (Body Mass Index) 30.45 kg/m2 [facility] Work Phone: 12-10-2016 15:59-0400 BP Diastolic 80 mm[Hg] Samira Toni [facility] Work Phone: 12-10-2016 15:59-0400 BP Systolic 138 mm[Hg] Samira Toni [facility] Work Phone: 12-10-2016 15:59-0400 Height 165.1 cm Samira Toni [facility] Work Phone: 12-10-2016 15:59-0400 Pulse (Heart Rate) 72 /min Samira Toni [facility] Work Phone: 12-10-2016 15:59-0400 Respiratory Rate 20 /min Samira Toni [facility] Work Phone: 12-10-2016 15:59-0400 Weight 83.01 kg Samiraevelina [facility] Work Phone: 08-16-2016 10:47-0500 BSA (Body Surface Area) 1.91 m2 Samira Toni [facility] Work Phone: 10-27-2015 14:04-0400 Height 165.1 cm Samira Toni [facility] Work Phone: Encounters Encounter Date Encounter Type Care Provider Facility Start: 08-19-2023 Telephone encounter Peg wakefield MD Work Phone: [facility] [employer] [facility] Cardiology Procedures Date Procedure Procedure Detail Performing Clinician Start: 08-15-2023 Ecg routine ecg w/least 12 lds trcg only w/o i&r Bijan Benavides MD Work Phone: Start: 08-15-2023 Cardiac catheterization study Peg Reis MD Work Phone: Start: 08-15-2023 End: 08-15-2023 POCT ACT Peg Preston Work Phone: Start: 08-07-2023 Ecg routine ecg w/least 12 lds trcg only w/o i&r Peg Reis MD Work Phone: Start: 02-10-2020 Us retroperitoneal real time w/image limited aMrlon Rincon Work Phone: Start: 01-24-2020 Blood count complete auto&auto difrntl wbc Yves Love Work Phone: Start: 01-24-2020 Comprehensive metabolic panel Yves Ivan Work Phone: Start: 01-23-2020 OPERATIVE REPORT 3m Scanning Start: 01-23-2020 Culture bacterial quanttative colony count urine Juan Randolph Work Phone: Start: 01-23-2020 Urnls dip stick/tablet rgnt auto w/o microscopy Juan Randolph Work Phone: Start: 01-23-2020 Blood count complete auto&auto difrntl wbc Yves Love Work Phone: Start: 01-23-2020 Comprehensive metabolic panel Yves Ivan Work Phone: Start: 12-12-2018 Adult depression screening assessment Ryan Kyle Work Phone: Start: 07-22-2018 End: 07-22-2018 LABS (OUTSIDE) Historical Provider Start: 06-02-2018 End: 06-02-2018 LABS (OUTSIDE) Historical Provider Start: 10-04-2017 Lipid 1996 panel - Serum or Plasma Angella Torres Start: 12-10-2016 End: 12-10-2016 Follow Up Appt 6 months Bebeot Oshea MD Start: 12-10-2016 End: 12-10-2016 MMM Bebeto Oshea MD Start: 12-10-2016 End: 12-10-2016 Follow Up Appt 6 months Bebeto Oshea MD Start: 12-10-2016 End: 12-10-2016 MMM Bebeto Oshea MD Start: 08-16-2016 End: 08-16-2016 Ecg routine ecg w/least 12 lds w/i&r Va Quintana PA-C Work Phone: Start: 08-16-2016 End: 08-16-2016 Follow Up Appt Other Va green PA-C Work Phone: Start: 08-16-2016 End: 08-16-2016 Electrocardiogram, complete Va Camejo PA-C Work Phone: Start: 08-16-2016 End: 08-16-2016 Follow Up Appt Other Va green PA-C Work Phone: Start: 06-01-2016 End: 06-01-2016 Follow Up Appt 6 months Va tanner PA-C Work Phone: Start: 06-01-2016 End: 06-01-2016 PFM Va Quintana PA-C Work Phone: Start: 06-01-2016 End: 06-01-2016 Follow Up Appt 6 months Va tanner PA-C Work Phone: Start: 06-01-2016 End: 06-01-2016 PFM Va Quintana PA-C Work Phone: Start: 04-10-2016 End: 04-11-2016 Natriuretic peptide B [Mass/volume] in Blood Va Quintana PA-C Work Phone: Start: 04-10-2016 End: 04-11-2016 BNP Va Quintana PA-C Work Phone: Start: 03-01-2016 End: 03-01-2016 Follow Up Appt 3 months Va tanner PA-C Work Phone: Start: 03-01-2016 End: 03-01-2016 Follow Up Appt 6 months Va tanner PA-C Work Phone: Start: 03-01-2016 End: 03-01-2016 MM Va Quintana PA-C Work Phone: Start: 03-01-2016 End: 03-01-2016 PFM Va Quintana PA-C Work Phone: Start: 03-01-2016 End: 03-01-2016 Follow Up Appt 3 months Va tanner PA-C Work Phone: Start: 03-01-2016 End: 03-01-2016 Follow Up Appt 6 months Va tanner PA-C Work Phone: Start: 03-01-2016 End: 03-01-2016 [facility] Va Quintana PA-C Work Phone: Start: 03-01-2016 End: 03-01-2016 [facility] Va Quintana PA-C Work Phone: Start: 01-23-2016 End: 01-23-2016 *BMP Bebeto Oshea MD Start: 01-23-2016 End: 01-23-2016 *BMP Bebeto Oshea MD Start: 01-09-2016 End: 01-09-2016 Nurse, Teaching, Wound Check (no charge) Bebeto Oshea MD Start: 01-09-2016 End: 01-09-2016 Nurse, Teaching, Wound Check (no charge) Bebeto Oshea MD Start: 12-12-2015 End: 12-12-2015 Follow Up Appt 6 weeks Va linares PA-C Work Phone: Start: 12-12-2015 End: 12-12-2015 Follow Up Appt Other Va green PA-C Work Phone: Start: 12-12-2015 End: 12-12-2015 MMM Va Quintana PA-C Work Phone: Start: 12-12-2015 End: 12-12-2015 Follow Up Appt 6 weeks Va linares PA-C Work Phone: Start: 12-12-2015 End: 12-12-2015 Follow Up Appt Other Va green PA-C Work Phone: Start: 12-12-2015 End: 12-12-2015 MMM Va Quintana PA-C Work Phone: Start: 11-10-2015 End: 02-22-2016 Cardiac Rehab Bebeto Oshea MD Start: 11-10-2015 End: 11-23-2015 Cardiovascular stress test using treadmill Bebeto Oshea MD Start: 11-10-2015 End: 02-22-2016 Cardiac Rehab Bebeto Oshea MD Start: 11-10-2015 End: 11-23-2015 Cardiovascular stress test using treadmill Bebeto Oshea MD Start: 10-27-2015 End: 10-27-2015 Ecg routine ecg w/least 12 lds w/i&r Bebeto Oshea MD Start: 10-27-2015 End: 11-23-2015 Echocardiography Bebeto Oshea MD Start: 10-27-2015 End: 11-23-2015 Follow Up Appt 6 weeks Bebeto Oshea MD Start: 10-27-2015 End: 11-23-2015 FELIPE Oshea MD Start: 10-27-2015 End: 11-23-2015 Echocardiography Bebeto Oshea MD Start: 10-27-2015 End: 10-27-2015 Electrocardiogram, complete Bebeto wesley MD Start: 10-27-2015 End: 11-23-2015 Follow Up Appt 6 weeks Bebeto Oshea MD Start: 10-27-2015 End: 11-23-2015 MMM Bebeto Oshea MD Start: 11-23-2009 Colonoscopy Ryan Mesa Work Phone: Plan of Treatment Date Care Activity Detail Author Start: 12-09-2029 DTaP/Tdap/Td Vaccines (2 - Td or Tdap) DTaP/Tdap/Td Vaccines (2 - Td or Tdap) [facility] Start: 12-09-2029 Urine microalbumin profile DTAP,TDAP,TD (2 - Td or Tdap) [facility] Start: 09-08-2027 LIPID SCREEN LIPID SCREEN [facility] Start: 09-06-2027 PROSTATE CANCER SCREENING DISCUSSION PROSTATE CANCER SCREENING DISCUSSION [facility] Start: 09-30-2025 LIPID SCREEN LIPID SCREEN [facility] Start: 10-01-2023 DIABETES SCREEN DIABETES SCREEN [facility] Start: 09-10-2023 End: 09-10-2023 Patient encounter procedure 09/10/2023 1:15 PM EDT Appointment [facility] [address] [place] [id number] Nadiya Purcell, DIRECTOR [facility] [address] [place] [address] [facility] Start: 09-06-2023 ANNUAL PCP TEAM CHRONIC DISEASE VISIT ANNUAL PCP TEAM CHRONIC DISEASE VISIT [facility] Start: 09-06-2023 BP CONTROLLED (<130/80) BP CONTROLLED (<130/80) [facility] in Start: 08-29-2023 End: 08-29-2023 Patient encounter procedure 08/29/2023 9:00 AM EST Office Visit [facility] [address] [place] [address] Emily Chaidez, DIRECTOR [facility] [address] [address] [facility] Start: 08-22-2023 End: 08-15-2024 Basic metabolic 1998 panel - Serum or Plasma Basic metabolic panel Lab Routine Coronary artery disease involving [place] coronary artery of [place] heart with angina pectoris (HCC) Expected: 08/22/2023 (Approximate), Expires: 08/15/2024 [facility] Work Phone: Immunizations Immunization Date Immunization Notes Care Provider Fa cility 09-10-2020 COVID-19 vaccine (BETSEY) Ryan Mesa DO Work Phone: [facility] 12-10-2019 tetanus toxoid, redu alexander diphtheria toxoid, and acellular pertussis vaccine, adsorbed Ryan Mesa DO Work Phone: [facility] Payers Date Payer Category Payer Unknown [id number] 2019 Unknown [id number] 2015 Unknown [id number] 1960 Unknown [id number] Social History Date Type Detail Facility Start: 05-16-2018 End: 09-05-2022 Tobacco smoking status NHIS Never smoker [facility] Work Phone: Start: 1960 Sex Assigned At Not on file [facility] Work Phone: Start: 01-23-2020 End: 09-05-2022 Tobacco use and exposure Never used [employer]- O JERSON Palomares Start: 01-23-2020 End: 08-15-2023 Alcohol intake Ex-drinker (finding) [employer]- Josiane KERNS Exposure to SARS-CoV -2 (event) Not sure [facility] [place], [place] Start: 10-10-2020 End: 09-05-2022 Alcohol intake Current non-drinker of alcohol (finding) [facility] Start: 02-28-2020 History SDOH Alcohol Frequency 1 [facility] Start: 02-28-2020 History SDOH Alcohol Std Drinks 98 [facility] Start: 02-28-2020 History SDOH Social Connections Membership 2 [facility] Start: 02-28-2020 History SDOH Social Connections Living 3 [facility] Start: 02-28-2020 History SDOH Physica l Activity DPW 0 [facility] Start: 02-28-2020 History SDOH Financial 5 [facility] Start: 02-28-2020 Education 12 [facility] Start: 08-07-2023 History of Social function [facility] Start: 08-07-2023 Tobacco use panel [facility] Medical Equipment Procedure Code Equipment Code Equipment Origin al Text Equipment Identifier Dates [employer] [place] 8x30 - [id number] Start: 10-04-2015 [place] Conrad - [id number] Start: 10-04-2015 [employer] [place] 28x3 - [id number] Start: 10-04-2015 [employer] [place] [place] 8x30 - [id number] Start: 10-04-2015 [place] Conrad - [id number] Start: 10-04-2015 [employer] [place] [place] 28x3 - [id number] Start: 10-04-2015 [employer] [place] [place] 8x30 - [id number] Start: 10-04-2015 [place] Conrad - [id number] Start: 10-04-2015 [employer] [place] [place] 28x3 - [id number] Start: 10-04-2015 [employer] [place] 8x30 - [id number] Start: 10-04-2015 [place] Conrad - [id number] Start: 10-04-2015 [employer] [place] [place] 28x3 - [id number] Start: 10-04-2015 [employer] [place] [place] 8x30 - [id number] Start: 10-04-2015 [place] Conrad - [id number] Start: 10-04-2015 [employer] [place] [place] 28x3 - [id number] Start: 10-04-2015 [employer] [place] 8x30 - [id number] Start: 10-04-2015 [place] Conrad - [id number] Start: 10-04-2015 [employer] [place] [place] 28x3 - [id number] Start: 10-04-2015 [employer] [place] [place] 8x30 - [id number] Start: 10-04-2015 [place] Conrad - [id number] Start: 10-04-2015 [employer] [place] 28x3 - [id number] Start: 10-04-2015 [employer] [place] [place] 8x30 - [id number] Start: 10-04-2015 [place] Conrad - [id number] Start: 10-04-2015 [employer] [place] [place] 28x3 - [id number] Start: 10-04-2015 [employer] [place] [place] 8x30 - [id number] Start: 10-04-2015 [place] Conrad - [id number] Start: 10-04-2015 [employer] [place] 28x3 - [id number] Start: 10-04-2015 [employer] [place] [place] 8x30 - [id number] Start: 10-04-2015 [place] Conrad - [id number] Start: 10-04-2015 [employer] [place] 28x3 - [id number] Start: 10-04-2015 [employer] [place] [place] 8x30 - [id number] Start: 10-04-2015 [place] Conrad - [id number] Start: 10-04-2015 [employer] [place] 28x3 - [id number] Start: 10-04-2015 [employer] [place] 8x30 - [id number] Start: 10-04-2015 [place] Conrad - [id number] Start: 10-04-2015 [employer] [place] 28x3 - [id number] Start: 10-04-2015 [employer] [place] 8x30 - [id number] Start: 10-04-2015 [place] Conrad - [id number] Start: 10-04-2015 [employer] [place] 28x3 - [id number] Start: 10-04-2015 [employer] [place] 8x30 - [id number] Start: 10-04-2015 [place] Conrad - [id number] Start: 10-04-2015 [employer] [place] 28x3 - [id number] Start: 10-04-2015 [employer] [place] 8x30 - [id number] Start: 10-04-2015 [place] Conrad - [id number] Start: 10-04-2015 [employer] [place] 28x3 - [id number] Start: 10-04-2015 [employer] [place] 8x30 - [id number] Start: 10-04-2015 [place] Conrad - [id number] Start: 10-04-2015 [employer] [place] 28x3 - [id number] Start: 10-04-2015 Stent Cor Skypoi nt 2.74s79ne - [id number] Start: 08-15-2023 Clinical Notes 06-19-2010 to 08-20-2023 Telephone Encounter - ROSY Cho CNP - 08/20/2023 3:52 PM ESTTelephone Encounter - ROSY Cho CNP - 08/20/2023 3:52 PM ESTDischarge InstructionsPatient Instructions Note Date & Type Note Facility 08-20-2023 Telephone encounter Note PC to Daughter, Unusual for Brilinta to cause a headache, but happens every time he takes it. Advised to replace Brilinta with a loading dose of Plavix 600 mg this evening followed by Plavix 75 mg daily. Advise if not available at pharmacy this evening ,to take Brilinta . She understands , Asked her to call us if the Headaches do not go away. Keep follow-up as scheduled. [facility] 08-20-2023 Miscellaneous Notes PC to Daughter, Unusual for Brilinta to cause a headache, but happens every time he takes it. Advised to replace Brilinta with a loading dose of Plavix 600 mg this evening followed by Plavix 75 mg daily. Advise if not available at pharmacy this evening ,to take Brilinta . She understands , Asked her to call us if the Headaches do not go away. Keep follow-up as scheduled. Patient s/p C 08/15/23 receiving CIRILO to mid LCX, patient started on Brilinta 90 mg bid and atorvastatin 40 mg daily. Patient also has uncontrolled HTN and started on labetalol 300 mg tid after his heart cath in addition to the hydrochlorothiazide 25 mg daily and telmisartan 80 mg bid. Spoke with daughter who states after patient takes the Brilinita dose in the AM and PM about 30 minutes after he has a headache that lasts for 3-4 hours before resolving on its own. Reviewed other medications and time of day taken: Labetalol in the AM and PM, hydrochlorothiazide in the PM and Telmisartan in the AM and PM. Patient takes BP few hours after medications and has have been 150s/90s each day since leaving the hospital. Daughter explains patient has had intolerance to new medications in the past causing headaches. Daughter stated patient was on plavix at one point and does not remember having headaches. Denies any other cardiac concerns/symptoms. She Cooper APRN to review and advise. Patients dgtr, Mahsa, states after patient takes his brylinta he gets a OBRIEN for about 3-4 hours then it goes away. Wanted to let you know in case this was a SE that would not resolve. OK per dgtr to wait until tomorrow to be addressed documented in this encounter [facility] 08-20-2023 Telephone encounter Note Patient s/p [facility] 08/15/23 receiving CIRILO to mid LCX, patient started on Brilinta 90 mg bid and atorvastatin 40 mg daily. Patient also has uncontrolled HTN and started on labetalol 300 mg tid after his heart cath in addition to the hydrochlorothiazide 25 mg daily and telmisartan 80 mg bid. Spoke with daughter who states after patient takes the Brilinita dose in the AM and PM about 30 minutes after he has a headache that lasts for 3-4 hours before resolving on its own. Reviewed other medications and time of day taken: Labetalol in the AM and PM, hydrochlorothiazide in the PM and Telmisartan in the AM and PM. Patient takes BP few hours after medications and has have been 150s/90s each day since leaving the hospital. Daughter explains patient has had intolerance to new medications in the past causing headaches. Daughter stated patient was on plavix at one point and does not remember having headaches. Denies any other cardiac concerns/symptoms. She Cooper APRN to review and advise. [facility] 08-19-2023 Telephone encounter Note Patients dgtr, Mahsa, states after patient takes his brylinta he gets a OBRIEN for about 3-4 hours then it goes away. Wanted to let you know in case this was a SE that would not resolve. OK per dgtr to wait until tomorrow to be addressed [facility] 08-19-2023 Telephone encounter Note Returned call to [facility] [employer] They will fill med. [facility] 08-19-2023 Miscellaneous Notes Returned call to [employer] They will fill med. Jovani from [employer] called regarding the Lipitor prescription. On the patient's chart, statins are listed as an allergy. Please return call to [phone] Reference # [id number]. documented in this encounter [facility] 08-19-2023 Telephone encounter Note Jovani from [employer] called regarding the Lipitor prescription. On the patient's chart, statins are listed as an allergy. Please return call to [phone] Reference # [id number]. [facility] 08-15-2023 Note Name: Mara Downs jef Date of : 1960 Date of Admission: 08/15/2023 Date of Discharge: 08/15/2023 Admitting physician: Peg Reis MD Discharge Attending: ROSY Warren CNP Primary Care Physician: Ryan Mesa Review of Systems: Review of Systems Constitutional: Negative for chills, diaphoresis and fever. HENT: Negative for nosebleeds. Eyes: Negative for visual disturbance. Respiratory: Negative for chest tightness, shortness of breath and wheezing. Cardiovascular: Negative for chest pain (resolved), palpitations and leg swelling. Gastrointestinal: Negative for abdominal pain, blood in stool and diarrhea. Genitourinary: Negative for hematuria. Musculoskeletal: Positive for arthralgias (right shoulder pain). Negative for myalgias. Neurological: Negative for dizziness and syncope. Hematological: Does not bruise/bleed easily. Physical Exam: Physical Exam Constitutional: Appearance: Normal appearance. He is overweight. Cardiovascular: Rate and Rhythm: Normal rate and regular rhythm. Pulses: Normal pulses. Radial pulses are 2+ on the right side and 2+ on the left side. Dorsalis pedis pulses are 2+ on the right side and 2+ on the left side. Heart sounds: Normal heart sounds. No murmur heard. No friction rub. Comments: Right radial site stable: no bleeding, no hematoma, 2+ radial and ulnar pulses, normal sensation. Pulmonary: Effort: Pulmonary effort is normal. Breath sounds: Normal breath sounds and air entry. No wheezing, rhonchi or rales. Abdominal: General: Abdomen is flat. Bowel sounds are normal. Palpations: Abdomen is soft. Musculoskeletal: Right lower leg: No edema. Left lower leg: No edema. Skin: General: Skin is warm and dry. Capillary Refill: Capillary refill takes less than 2 seconds. Neurological: Mental Status: He is alert and oriented to person, place, and time. Psychiatric: Attention and Perception: Attention normal. Mood and Affect: Mood normal. Speech: Speech normal. Behavior: Behavior normal. Thought Content: Thought content normal. Vitals: 08/15/23 1345 08/15/23 1400 08/15/23 1415 08/15/23 1500 BP: (!) 163/100 (!) 182/101 (!) 168/98 Pulse: 73 71 74 70 Resp: 23 (!) 10 14 26 Temp: TempSrc: SpO2: Weight: Height: Reason for Admission: CAD Consultants: Cardiac Rehab HOSPITAL ADMISSION PROBLEM LIST: Patient Active Problem List Diagnosis Hydronephrosis of right kidney CY (acute kidney injury) (HCC) Obstruction of right ureter Calculus, ureter Solitary kidney Flank pain Essential hypertension Hyperlipidemia, mixed Asthma BPH (benign prostatic hyperplasia) Sleep apnea Cancer (CMS/HCC) (HCC) Coronary artery disease involving [place] coronary artery of [place] heart with angina pectoris (HCC) Procedures: Cath Summary: [facility] with PCI 08/15/23 Preliminary Report Conclusion Background: This is a very pleasant 62 y.o. male with pmh of CAD s/p PCI to his RCA in 2016 (repeat in 2018 showed no new CAD). 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 Type B dissection to the renals managed with medical therapy. He has noted progressive exertional chest pressure, sometimes present at rest. This is the same constellation of symptoms that happened leading up to his need for RCA stent in the past (not the same symptoms as he had prior to his type A dissection). Findings: Coronary Anatomy: Left main with minimal luminal irregularities LAD with diffuse proximal to mid LAD 60% stenosis. IFR borderline at 0.89-0.90. Circumflex with two high grade stenotic lesion( 90%) in mid segment. RCA with proximal 30% stenosis, patent distal RCA stent and mild diffuse disease. RPAV with 40% stenotic lesion. Hemodynamics: Unable to cross aortic jerry due to extreme tortuosity of the aorta( prior repair for type A aortic dissection) Intervention: LCX Coronary Revascularization: Successful DRUG ELUTING STENT( 2.5 x 33 mm) placed to the 90% lesions of the mid LCX with minimal residual stenosis. -IVUS used to appropriately size stent Recommendations: Aspirin 81mg daily, lifelong. Dual antiplatelet therapy for minimum 12 months Continued aggressive risk factor modification and medical therapy Recommend LAD PCI if patient still has persistent anginal symptoms despite optimal antianginal therapy HOSPITAL COURSE : Mr. So is a 62 year old male, recently established with Dr. Reis, with PMHx CAD (remote PCI RCA 2015), HTN, HLD, type A dissection with emergent surgery with ascending repair and reimplantation of innominate artery via graft, type B dissection to the renals left for medical therapy. He was seen by Dr. Reis 08/07/23 as a new patient with c/o exertional chest pressure that was sometimes present at rest. These symptoms wer (more content not included)... [facility] 08-15-2023 Hospital Discharge instructions Nadiya Purcell, DIRECTOR [facility] - 08/15/2023 11:06 AM EST Call your doctor with any medication questions or if you notice any side effects from your medications. If you are unable to fill your medications, please call your Refining Machine Operator immediately. The office number is located with your follow-up appointment information. Call your doctor if any redness or drainage from the wound site. DO NOT stop taking your medication unless instructed to do so by your doctor. Read the drug information material that were given to you and take medications as instructed by your doctor. New drugs may have been added to your medications, that will strengthen your heart and prevent re-stenosis of the coronary arteries. Drink 6 glasses of water (8 ounces each) over the next 24 hours. Water helps clear the dye from your body. No alcoholic beverages for 24 hours. It may interfere with healing. No exercise or sex for 5 days. Call 911 for chest pain, arm pain, nausea, neck pain, dizziness or unusual sweating AND your pain has not relieved with 2 doses of Nitroglycerin. Radial Site (wrist) Call your doctor if a lump at the puncture site enlarges or is larger than marble size. Call your doctor for numbness, tingling, or swelling of the fingers, hand or wrist. Call your doctor for increased area or bruising with discoloration extending into the arm. If bleeding occurs, hold pressure with your thumb against the puncture site and your finger against the back of the wrist for 10 minutes, if BLEEDING continues CALL 911. OK to shower. No tub baths, swimming pools or hot tub soaking for three days. Wash site daily with soap and water, dry gently. The healing wound should remain soft and dry. Keep site clean and dry, no soaking of wrist for three days (no cleaning or dish washing). Remove band aid the day after procedure and leave open to air. No bending of affected wrist for 24 hours. DO NOT lift more than three pounds for 3-5 days[address] driving for 24 hours. PLEASE CALL YOUR HEART DOCTOR IF YOU CANNOT GET YOUR MEDICATIONS. THE NUMBER IS LISTED WITH YOUR FOLLOW-UP APPOINTMENT. Procedure Sedation Instructions If you have received sedation: you must have someone drive you home You should not drive a car, operate machinery, drink alcohol or perform any activity that requires alertness for the rest of the day. The effects of the sedative should be gone by tomorrow. Blood work in 5-7 days, see orders Cardiac Rehab The Cardiac Rehab team at [facility] consists of highly skilled exercise physiologists, nurses, respiratory therapists and physicians working together with you. Our purpose is to help you have a full recovery and achieve the goals you set for yourself. Over the years many of our patients have returned to activities they assumed they would never do again! We can help restore your confidence and motivation to make lifestyle changes that can have a significant impact on your health and quality of life! We can help answer questions and concerns you may have about exercise, lifestyle, medications, diet, stress and anxiety which are common following a hospitalization. We monitor ECG and vital signs during exercise and discuss your progress with you and report to your physician. Cardiac Rehab is proven to help reduce readmissions, improve functional capacity and lower recurrence of problems with your heart. We have facilities at both [facility] and [facility]. At both locations we have street level parking which is free and our sites are easily accessible. For both [facility] you can contact us at . We invite you to call us with your questions or to get started in our program. If you have other questions or concerns be sure to ask your provider during your follow up visit. We look forward to seeing you there. Our locations: [facility] [address] [facility] [address] [facility] [id number] - [facility] documented in this encounter [facility] 08-12-2023 Note Attestation signed by Peg Reis MD at 08/16/2023 1:05 PM I, Dr. Reis, saw and evaluated the patient. I personally obtained the centeno and critical portions of the history and physical exam. I reviewed the chart and discussed the patient with the Nurse Practitioner. I agree with the Nurse Practitioner's medical decision making. I spoke with Mara Vallecillo Sonu this morning. he tells me that nothing has changed clinically since our last office visit. We will proceed with the planned procedure. Mr Ascencio is scheduled for a [facility] with Dr. Reis on 08/15/23 at 10:00 AM [place] Protocol: Yes GFR = 49 No contrast allergy Coronary Appropriate Use Criteria Coronary Presentation (select one): Worsening Angina History of CABG (select one): No Diabetes (select one): No Anginal Classification (CCS) within 2 weeks (select one): CCS III - Symptoms with everyday living activities, i.e. moderate limitation Anti-anginal Meds within 2 weeks (select all that apply): Yes: Beta Blockers, Long Acting Nitrates (Any), and Aspirin Stress or Imaging studies performed (select one), risk/extent of ischemia (select one if applicable): No, N/A Patient undergoing renal transplant or percutaneous valve procedure (select one): No NYHA Classification: N/A, no history of HF Frailty Score : 4 H+ P copied to chart from Dr. Reis's progress note dated 08/07/[address] Reis. [facility] [address] [facility] [address] Dept: [phone] Dept Visit type: New : 1960 Reason for Visit: New Patient Assessment and Plan 1. Hx of repair of dissecting thoracic aortic aneurysm, [place] type A 2. Essential hypertension - ECG 12 lead - CLINIC PERFORMED 3. Coronary artery disease involving [place] coronary artery of [place] heart with angina pectoris (HCC) - Basic metabolic panel - CBC - Case Request Crown Attacher: Left heart cath / coronary angiography This is a very pleasant 62y/o male with history of Type A aortic dissection s/p repair (as described below) as well as CAD s/p RCA stent (2016). His chest pain symptoms are most consistent with progressive CAD, will plan for a cath to evaluate. I think he needs a surveillance CT scan of his aorta, regardless of what is found by cath, but would certainly be of interest if we find nothing to explain his symptoms on cath. He does need better HTN control. His BP is elevated today. He will monitor at home, will likely need to uptitrate his antihypertensive regimen. Further plans to follow his cath. It was a pleasure seeing your patient in the office today. Please do not hesitate to call me with any questions. Follow up for Recheck after cath. Subjective HPI Mara Ascencio is a very pleasant 62y/o male here for evaluation of chest pain. He has a history of cad s/p PCI to his RCA in 2016 (repeat in 2018 showed no new CAD). 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 Type B dissection to the renals left for medical therapy. He has noted progressive exertional chest pressure, sometimes present at rest. This is the same constellation of symptoms that happened leading up to his need for RCA stent in the past (not the same symptoms as he had prior to his type A dissection). Review of Systems Constitutional: Positive for activity change and fatigue. Negative for chills, diaphoresis and fever. HENT: Negative for nosebleeds and trouble swallowing. Eyes: Negative for discharge and visual disturbance. Respiratory: Positive for shortness of breath. Negative for apnea, cough, chest tightness and wheezing. Cardiovascular: Positive for chest pain. Negative for palpitations and leg swelling. Gastrointestinal: Negative for abdominal distention, abdominal pain, blood in stool, diarrhea, nausea and vomiting. Endocrine: Negative for cold intolerance and heat intolerance. Genitourinary: Negative for hematuria. Musculoskeletal: Negative for gait problem and myalgias. Skin: Negative for color change and rash. Neurological: Positive for dizziness and light-headedness. Negative for seizures, syncope, facial asymmetry, speech difficulty, weakness, numbness and headaches. Hematological: Does not bruise/bleed easily. Psychiatric/Behavioral: Negative for dysphoric mood. Allergies Allergen Reactions Pernell Inhibitors Other reaction(s): GI Upset Other reaction(s): GI Upset Intolerance: the patient states he has debilitating headaches, hypertension, and suicidal thoughts a few weeks after starting the medication Severe headache and confusion Intolerance: the patient states he has debilitating headaches, hypertension, a (more content not included)... [facility] 08-12-2023 Note Zaina Purcell CNP notif ied to review lab results, consider poseidon protocol, and complete prep for procedure orders. Procedure being done: [facility] Date/time of procedure: 08/15/2023 @ 10 AM Procedure physician: Dr. Reis PRE-PROCEDURE CHECKLIST Completed: CMP, CBC, EKG, and H&P Date completed: H&P: 08/07/2023 BMP: 08/07/2023 media CBC: 08/07/2023 media EK08/07/2023 PT INR (if indicated): NA Urine HCG (if indicated): NA Last ICD/pacer check (if indicated): NA ORDERS DAY OF PROCEDURE [x] N/A [] Urine HCG [] POC Glucose [] POC INR [] EKG on arrival [] BMP [] CBC Other: [facility] 08-12-2023 Telephone encounter Note Prep for proc completed [facility] [employer] Work Phone: 08-12-2023 Miscellaneous Notes Prep for proc completed Zaina Purcell CNP notified to review lab results, consider poseidon protocol, and complete prep for procedure orders. Procedure being done: [facility] Date/time of procedure: 08/15/2023 @ 10 AM Procedure physician: Dr. Reis PRE-PROCEDURE CHECKLIST Completed: CMP, CBC, EKG, and H&P Date completed: H&P: 08/07/2023 BMP: 08/07/2023 media CBC: 08/07/2023 media EK08/07/2023 PT INR (if indicated): NA Urine HCG (if indicated): NA Last ICD/pacer check (if indicated): NA ORDERS DAY OF PROCEDURE [x] N/A [] Urine HCG [] POC Glucose [] POC INR [] EKG on arrival [] BMP [] CBC Other: Lab results from [facility] DOS 08/07/23 scanned into media Dx: CAD Procedure: LHC Date/Time: 08/15/23 at 10:00a Surgeon: PB Location: [facility] Admission: Outpatient Anesthesia: n/a No auth req per MMO for outpatient procedures. On [employer] and PB calendar. You are scheduled for [facility] with Dr. Reis on 08/15/23 at 10 AM Report to [facility], 2 nd Floor 2 [facility] Waiting Room by 8:30 AM You can park in the [address] Deck or use [employer] parking (for a nominal fee of $7-8) and enter the hospital using the [address] entrance across from the parking deck You will need a designated truck driver heavy for the day of your procedure to take you home. You will not be able to drive 24-72 hours after the procedure Nothing to eat or drink after midnight Please take your am medications with sips of water prior to leaving for the hospital. Please take your Aspirin as usual before leaving for the hospital. Hold HCTZ Get blood work done by 08/12/23 [facility] Please call the office if you have any questions. Patient is scheduled for a [facility] with Dr. Reis on 08/15/2022 @ 10:00 AM at [facility]. Teach completed in office and lab order were given to be drawn. documented in this encounter [facility] 08-12-2023 Telephone encounter Note Zaina Binh [employer] notified to review lab results, consider poseidon protocol, and complete prep for procedure orders. Procedure being done: [facility] Date/time of procedure: 08/15/2023 @ 10 AM Procedure physician: Dr. Reis PRE-PROCEDURE CHECKLIST Completed: CMP, CBC, EKG, and H&P Date completed: H&P: 08/07/2023 BMP: 08/07/2023 media CBC: 08/07/2023 media EK08/07/2023 PT INR (if indicated): NA Urine HCG (if indicated): NA Last ICD/pacer check (if indicated): NA ORDERS DAY OF PROCEDURE [x] N/A [] Urine HCG [] POC Glucose [] POC INR [] EKG on arrival [] BMP [] CBC Other: [facility] 08-09-2023 Telephone encounter Note Lab results from [facility] DOS 08/07/23 scanned into media [facility] 08-07-2023 Note Dx: CAD Procedure: [facility] Date/Time: 08/15/23 at 10:00a Surgeon: PB Location: [facility] Admission: Outpatient Anesthesia: n/a No auth req per MMO for outpatient procedures. On [employer] and PB calendar. [facility] 08-07-2023 Telephone encounter Note Dx: CAD Procedure: [facility] Date/Time: 08/15/23 at 10:00a Surgeon: PB Location: [facility] Admission: Outpatient Anesthesia: n/a No auth req per MMO for outpatient procedures. On [employer] and PB calendar. [facility] 08-07-2023 Telephone encounter Note You are scheduled for LHC with Dr. Reis on 08/15/23 at 10 AM Report to [facility], 2 nd Floor 2 [facility] Waiting Room by 8:30 AM You can park in the [address] De[address] or use [employer] parking (for a nominal fee of $7-8) and enter the hospital using the [address] entrance across from the parking deck You will need a designated truck driver heavy for the day of your procedure to take you home. You will not be able to drive 24-72 hours after the procedure Nothing to eat or drink after midnight Please take your am medications with sips of water prior to leaving for the hospital. Please take your Aspirin as usual before leaving for the hospital. Hold HCTZ Get blood work done by 08/12/23 [facility] Please call the office if you have any questions. [facility] 08-07-2023 Telephone encounter Note Patient is scheduled for a LHC with Dr. Reis on 08/15/2022 @ 10:00 AM at [facility]. Teach completed in office and lab order were given to be drawn. [facility] 08-07-2023 History of Present illness Narrative Images from the original note were not included. [facility] [address] [facility] [id number] Dept: [phone] Dept Visit type: New : 1960 Reason for Visit: New Patient Assessment and Plan 1. Hx of repair of dissecting thoracic aortic aneurysm, [place] type A 2. Essential hypertension - ECG 12 lead - CLINIC PERFORMED 3. Coronary artery disease involving [place] coronary artery of [place] heart with angina pectoris (HCC) - Basic metabolic panel - CBC - Case Request Crown Attacher: Left heart cath / coronary angiography This is a very pleasant 62y/o male with history of Type A aortic dissection s/p repair (as described below) as well as CAD s/p RCA stent (2016). His chest pain symptoms are most consistent with progressive CAD, will plan for a cath to evaluate. I think he needs a surveillance CT scan of his aorta, regardless of what is found by cath, but would certainly be of interest if we find nothing to explain his symptoms on cath. He does need better HTN control. His BP is elevated today. He will monitor at home, will likely need to uptitrate his antihypertensive regimen. Further plans to follow his cath. It was a pleasure seeing your patient in the office today. Please do not hesitate to call me with any questions. Follow up for Recheck after cath. Subjective HPI Mara Ascencio is a very pleasant 62y/o male here for evaluation of chest pain. He has a history of cad s/p PCI to his RCA in 2016 (repeat in 2018 showed no new CAD). 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 Type B dissection to the renals left for medical therapy. He has noted progressive exertional chest pressure, sometimes present at rest. This is the same constellation of symptoms that happened leading up to his need for RCA stent in the past (not the same symptoms as he had prior to his type A dissection). Review of Systems Constitutional: Positive for activity change and fatigue. Negative for chills, diaphoresis and fever. HENT: Negative for nosebleeds and trouble swallowing. Eyes: Negative for discharge and visual disturbance. Respiratory: Positive for shortness of breath. Negative for apnea, cough, chest tightness and wheezing. Cardiovascular: Positive for chest pain. Negative for palpitations and leg swelling. Gastrointestinal: Negative for abdominal distention, abdominal pain, blood in stool, diarrhea, nausea and vomiting. Endocrine: Negative for cold intolerance and heat intolerance. Genitourinary: Negative for hematuria. Musculoskeletal: Negative for gait problem and myalgias. Skin: Negative for color change and rash. Neurological: Positive for dizziness and light-headedness. Negative for seizures, syncope, facial asymmetry, speech difficulty, weakness, numbness and headaches. Hematological: Does not bruise/bleed easily. Psychiatric/Behavioral: Negative for dysphoric mood. Allergies Allergen Reactions Pernell Inhibitors Other reaction(s): GI Upset Other reaction(s): GI Upset Intolerance: the patient states he has debilitating headaches, hypertension, and suicidal thoughts a few weeks after starting the medication Severe headache and confusion Intolerance: the patient states he has debilitating headaches, hypertension, and suicidal thoughts a few weeks after starting the medication Severe headache and confusion Amlodipine Other reaction(s): GI Upset Other reaction(s): GI Upset, High BP/confusion N/v with low dose 2.5mg N/v with low dose 2.5mg Gluten Meal Other reaction(s): Vomiting Metoprolol Other reaction(s): HIVES Sertraline Hives Other reaction(s): Confusion, Dizzy/Vertigo, Drowsy/Sedated, Hypertension, Other (See Comments) Tolerates lexapro PRN, however, states he has had hallucinations Tolerates lexapro PRN, however, states he has had hallucinations Sulfa Antibiotics Headache and Hives Other reaction(s): Confusion, Other (See Comments) Other reaction(s): mental status changes Erythromycin Headache and Hives Other reaction(s): Headache Nifedipine Other reaction(s): Vomiting Other reaction(s): Vomiting Intolerance: the patient states he has debilitating headaches and hypertension a few weeks after starting the medication Severe abd cramping, emesis Intolerance: the patient states he has debilitating headaches and hypertension a few weeks after starting the medication Severe abd cramping, emesis Statins Other reaction(s): mental confusion Outpatient Medications Prior to Visit Medication Sig Dispense Refill aspirin 81 MG EC tablet Take 81 mg by mouth in the morning. hydroCHLOROthiazide (HYDRODiuril) 25 MG tablet Take 25 mg by mouth daily. isosorbide mononitrate ER (Imdur) 60 MG 24 hr tablet Take 60 mg by mouth daily. labetalol (Normodyne) 300 MG tablet Take 300 mg by mouth in the morning and 300 mg in the evening. telmisartan (MIcarDIS) 80 MG tablet Take 80 mg by mouth 2 times daily. acetaminophen (Tylenol) 325 MG tablet Take 1 tablet by mouth every 4 hours as needed. nitroglycerin (Nitrostat) 0.4 MG SL tablet No facility-administered medications prior to visit. Past Medical History: Diagnosis Date Aortic aneurysm and dissection (HCC) 2016 Asthma BPH (benign prostatic hyperplasia) Cancer (CMS/HCC) (HCC) 2006 kidney Gall stones Hypertension Sleep apnea Stroke ([facility]) 2016 Social History Tobacco Use Smoking status: Never Smokeless tobacco: Never Substance Use Topics Alcohol use: Not Currently Past Surgical History: Procedure Laterality Date ABDOMINAL SURGERY ARTERIAL ANEURYSM REPAIR 10/04/2015 CERVICAL SPINE SURGERY CORONARY ANGIOPLASTY WITH STENT PLACEMENT 11/17/2015 RCA CYSTOSCOPY 01/23/2020 Cystoscopy and pyelograms, right ureteroscopy, right ureteral dilation, right ureteral stent insertion (6F x 24cm) LAP,CHOLECYSTECTOMY (HISTORICAL) 04/18/2020 NEPHRECTOMY 2006 No family history on file. Objective Vitals: 08/07/23 1304 08/07/23 1329 BP: (!) 172/100 (!) 178/98 BP Location: Left arm Left arm Patient Position: Sitting Sitting BP Cuff Size: Adult Adult Pulse: 73 SpO2: 96% Weight: 185 lb 3.2 oz (84 kg) Height: 5' 5 (1.651 m) Physical Exam Constitutional: General: He is not in acute distress. Appearance: He is not diaphoretic. HENT: Head: Normocephalic. Nose: Nose normal. Mouth/Throat: Mouth: Mucous membranes are moist. Pharynx: No oropharyngeal exudate. Eyes: General: No scleral icterus. Right eye: No discharge. Left eye: No discharge. Neck: Thyroid: No thyromegaly. Vascular: No carotid bruit or JVD. Cardiovascular: Rate and Rhythm: Normal rate and regular rhythm. Pulses: Normal pulses. Heart sounds: Normal heart sounds. Pulmonary: Effort: Pulmonary effort is normal. Breath sounds: Normal breath sounds. Abdominal: General: Bowel sounds are normal. There is no distension. Palpations: There is no hepatomegaly. Tenderness: There is no abdominal tenderness. Musculoskeletal: General: Normal range of motion. Cervical back: Normal range of motion. Right lower leg: No edema. Left lower leg: No edema. Skin: General: Skin is warm and dry. Neurological: Mental Status: He is oriented to person, place, and time. Psychiatric: Mood and Affect: Mood normal. Behavior: Behavior normal. Data Reviewed and Summarized No results found for: EFBP , PLVEF , LVEFPHYS , LVEF2D , EF Review of tests/labs done/ordered within my specialty: EKG in office: Review of tests/labs done/ordered outside my specialty: Independent interpretation of tests: Peg Reis MD documented in this encounter [facility] 08-07-2023 Instructions Gabbi Cuevas RN - 08/07/2023 1:00 PM EST You are scheduled for [facility] with Dr. Reis on 08/15/23 at 10 AM Report to [facility], 2 nd Floor 2 [facility] Waiting Room by 8:30 AM You can park in the [address] De[address] or use [employer] parking (for a nominal fee of $7-8) and enter the hospital using the [address] entrance across from the parking deck You will need a designated truck driver heavy for the day of your procedure to take you home. You will not be able to drive 24-72 hours after the procedure Nothing to eat or drink after midnight Please take your am medications with sips of water prior to leaving for the hospital. Please take your Aspirin as usual before leaving for the hospital. Hold HCTZ Get blood work done by 08/12/23 [facility] Please call the office if you have any questions. documented in this encounter [facility] 06-10-2023 Note I received urgent re ferral for this patient from [facility]. I scanned in but put paper referral on [facility] desk. Gabbi will you please review for appropriate scheduling? [facility] 09-20-2022 Miscellaneous Notes The following approved medication requests have been transmitted electronically. Requested Prescriptions Signed Prescriptions Disp Refills rosuvastatin (CRESTOR) 5 mg tablet 90 tablet 0 Sig: Take 1 tablet by mouth daily at bedtime. Authorizing Provider: GEETA JOHNSON APRN.NITZA Pt informed, verbalized understanding. [facility] [place]. Andreina Bull Please inform patient that overall his labs are stable, just slightly elevated BUN (normal creatinine at 1.3) and slightly low potassium. Needs to increase fluids in his day to be taking in more potassium rich fluids and drinking at least 60 oz of water or more per day. His cholesterol is also high. Needs to cut back on animal fats and red meats and fried/fast/fatty foods in his diet. Consider restarting low dose of cholesterol medication such as Crestor if willing. Ryan Mesa DO documented in this encounter [facility] 09-05-2022 Note HNO ID: [id number] Author: Ryan Mesa DO Service: ? Author Type: Physician Type: Progress Notes Filed: 09/05/2022 9:16 PM Note Text: CC: Mara Ascencio is a 61 year old male who presents to the office for physical HPI: Had cholecystectomy in May 2020, overall feels he is recovering still from this due to all his other medical history concerns. Hx of cerebrellar stroke in 2015 and history of aortic dissection in 2015, seeing Refining Machine Operator regularly. No new stroke or cardiac symptoms. Mood, anxiety and depression symptoms, seem to be stable I have my good days and I have my bad days. Still taking alprazolam as needed for anxiety. Trying to stay physically active with walking his dog regularly and with his granddaughter. His daughter recently had her 7th loss/miscarriage and she was 25 weeks . Struggling with this. Also feels he knows he needs to get out of the house some but doesn't always feel like he can. Thinking about getting a volunteer or law firm partner position. Does admit that winter season is harder on him Hx of BPH and urinary retention and left kidney malignancy in 2004. Sees urologist PAST MEDICAL HISTORY Diagnosis Date Aortic dissection (HCC) 09/30/2015 Dr. 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 Berumen [facility] Esophagitis, unspecified Essential hypertension, benign Hiatal hernia History of laparoscopic cholecystectomy 08/02/2020 [facility], lysis of adhesions neoplasm-kidney 05/18/2005 left side Unspecified sleep apnea CPAP, setting 10 Urinary retention 09/30/2015 PAST SURGICAL HISTORY Procedure Laterality Date COLONOSCOPY FLX DX W/COLLJ SPEC WHEN PFRMD 11/23/2009 Colonoscopy ESOPHAGOGASTRODUODENOSCOPY TRANSORAL DIAGNOSTIC 11/23/2009 EGD NEPHRECTOMY W/PRTL URETERECT OPEN RIB RESCJ RAD 07/06/2005 Left PAST SURGICAL HISTORY OF 02/22/09 left plantar fasciotomy PAST SURGICAL HISTORY OF 10/04/15 aortic dissection repair upper and lower RPR 1ST INGUN HRNA AGE 3 YRS/> REDUCIBLE at age 8 STOMACH SURGERY PROCEDURE UNLISTED at infant VASECTOMY UNI/BI SPX W/POSTOP SEMEN EXAMS 1992 Social History: Social History Tobacco Use Smoking status: Never Smokeless tobacco: Never Substance Use Topics Alcohol use: No Drug use: No FAMILY HISTORY Problem Relation Age of Onset other (PARKISON'S [Other]) Mother other (UNKNOWN [Other]) Father Current Outpatient prescriptions: labetalol (TRANDATE) 300 mg tablet Take 300 mg by mouth three times daily. acetaminophen (TYLENOL) 325 mg tablet Take 325-650 mg by mouth every 4 hours as needed. aspirin, enteric coated (ASPIRIN, ENTERIC COATED) 81 mg EC tablet Take 81 mg by mouth once daily. hydroCHLOROthiazide (HYDRODIURIL, ESIDRIX) 25 mg tablet Take 25 mg by mouth once daily. telmisartan (MICARDIS) 80 mg tablet Take 80 mg by mouth once daily. nitroglycerin sublingual (NITROQUICK) 0.4 mg SL tablet Dissolve 1 tablet under the tongue every 5 minutes as needed. ALPRAZolam (XANAX) 1 mg tablet Take 1 tablet by mouth twice daily as needed for anxiety for up to 30 days. tamsulosin ER (FLOMAX) 0.4 mg ursodiol (ELIAN) 250 mg tablet Take 1 tablet by mouth three times daily as needed (gallstones). furosemide (LASIX) 20 mg tablet Take 1 tablet by mouth once daily. pantoprazole DR (PROTONIX) 40 mg tablet Take 1 tablet by mouth once daily. potassium chloride (K-TAB) 10 mEq tablet Take 10 mEq by mouth once daily. atorvastatin (LIPITOR) 80 mg tablet Take 1 tablet by mouth once daily. clopidogrel (PLAVIX) 75 mg tablet Take 75 mg by mouth once daily. Allergies: ALLERGIES Allergen Reactions Pernell Inhibitors GI Upset Severe headache and confusion Amlodipine GI Upset N/v with low dose 2.5mg Antihistamines - Al* Due to only having one kidney Blood Pressure Medi* Hives Cozaar and many more Depression Medicati* Hives Eryc [Erythromycin] Hives Procardia [Nifedipi* Vomiting Severe abd cramping, emesis ROS: See HPI PE: 09/05/22 1405 BP: 136/80 Pulse: 64 Resp: 16 Temp: 36.4 ?C (97.6 ?F) TempSrc: Left Tympanic Weight: 87.1 kg (192 lb) Height: 167 cm (5' 5.75 ) Gen: AANDO, NAD, non-toxic appearing, Pleasant, cooperative, vocal tic present, appears fatigued, slightly pale HEENT: NT/AC, PERRLA, EOMs intact b/l, nares clear and patent b/l, pharynx without erythema, exudate or lesions. Uvula midline. MMM, EACs without erythema or debris. TMs pearly fitzpatrick with intact landmarks b/l. Neck: supple, No cervical LAD, no thyromegaly, no carotid bruits CV: RRR, normal S1 and S2, 2/6 HSM RUSB soft b lowing murmurs, no gallops, no rubs, Pulses 2+ and symmetric in UE and LE b/l Lungs: normal respiratory effort, CTA b/l, no (more content not included)... [facility] 09-05-2022 Instructions Ryan Mesa DO - 09/05/2022 2:37 PM EST Patient assistance program for asthma medications Light box therapy 10,000 LUX strength light for 20-30 minutes a day - use for seasonal depression from Mar through September documented in this encounter [facility] 09-05-2022 History of Present illness Narrative CC: Mara Ascencio is a 61 year old male who presents to the office for physical HPI: Had cholecystectomy in May 2020, overall feels he is recovering still from this due to all his other medical history concerns. Hx of cerebrellar stroke in 2015 and history of aortic dissection in 2016, seeing Refining Machine Operator regularly. No new stroke or cardiac symptoms. Mood, anxiety and depression symptoms, seem to be stable I have my good days and I have my bad days. Still taking alprazolam as needed for anxiety. Trying to stay physically active with walking his dog regularly and with his granddaughter. His daughter recently had her 7th loss/miscarriage and she was 25 weeks . Struggling with this. Also feels he knows he needs to get out of the house some but doesn't always feel like he can. Thinking about getting a volunteer or law firm partner position. Does admit that winter season is harder on him Hx of BPH and urinary retention and left kidney malignancy in 2004. Sees urologist PAST MEDICAL HISTORY Diagnosis Date Aortic dissection (HCC) 09/30/2015 Dr. 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 Breumen [facility] Esophagitis, unspecified Essential hypertension, benign Hiatal hernia History of laparoscopic cholecystectomy 08/02/2020 [facility], lysis of adhesions neoplasm-kidney 05/18/2005 left side Unspecified sleep apnea CPAP, setting 10 Urinary retention 09/30/2015 PAST SURGICAL HISTORY Procedure Laterality Date COLONOSCOPY FLX DX W/COLLJ SPEC WHEN PFRMD 11/23/2009 Colonoscopy ESOPHAGOGASTRODUODENOSCOPY TRANSORAL DIAGNOSTIC 11/23/2009 EGD NEPHRECTOMY W/PRTL URETERECT OPEN RIB RESCJ RAD 07/06/2005 Left PAST SURGICAL HISTORY OF 02/22/09 left plantar fasciotomy PAST SURGICAL HISTORY OF 10/04/15 aortic dissection repair upper and lower RPR 1ST INGUN HRNA AGE 3 YRS/> REDUCIBLE at age 8 STOMACH SURGERY PROCEDURE UNLISTED at infant VASECTOMY UNI/BI SPX W/POSTOP SEMEN EXAMS 1992 Social History: Social History Tobacco Use Smoking status: Never Smokeless tobacco: Never Substance Use Topics Alcohol use: No Drug use: No FAMILY HISTORY Problem Relation Age of Onset other (PARKISON'S [Other]) Mother other (UNKNOWN [Other]) Father Current Outpatient prescriptions: labetalol (TRANDATE) 300 mg tablet Take 300 mg by mouth three times daily. acetaminophen (TYLENOL) 325 mg tablet Take 325-650 mg by mouth every 4 hours as needed. aspirin, enteric coated (ASPIRIN, ENTERIC COATED) 81 mg EC tablet Take 81 mg by mouth once daily. hydroCHLOROthiazide (HYDRODIURIL, ESIDRIX) 25 mg tablet Take 25 mg by mouth once daily. telmisartan (MICARDIS) 80 mg tablet Take 80 mg by mouth once daily. nitroglycerin sublingual (NITROQUICK) 0.4 mg SL tablet Dissolve 1 tablet under the tongue every 5 minutes as needed. ALPRAZolam (XANAX) 1 mg tablet Take 1 tablet by mouth twice daily as needed for anxiety for up to 30 days. tamsulosin ER (FLOMAX) 0.4 mg ursodiol (ELIAN) 250 mg tablet Take 1 tablet by mouth three times daily as needed (gallstones). furosemide (LASIX) 20 mg tablet Take 1 tablet by mouth once daily. pantoprazole DR (PROTONIX) 40 mg tablet Take 1 tablet by mouth once daily. potassium chloride (K-TAB) 10 mEq tablet Take 10 mEq by mouth once daily. atorvastatin (LIPITOR) 80 mg tablet Take 1 tablet by mouth once daily. clopidogrel (PLAVIX) 75 mg tablet Take 75 mg by mouth once daily. Allergies: ALLERGIES Allergen Reactions Pernell Inhibitors GI Upset Severe headache and confusion Amlodipine GI Upset N/v with low dose 2.5mg Antihistamines - Al* Due to only having one kidney Blood Pressure Medi* Hives Cozaar and many more Depression Medicati* Hives Eryc [Erythromycin] Hives Procardia [Nifedipi* Vomiting Severe abd cramping, emesis ROS: See HPI PE: 09/05/22 1405 BP: 136/80 Pulse: 64 Resp: 16 Temp: 36.4 C (97.6 F) TempSrc: Left Tympanic Weight: 87.1 kg (192 lb) Height: 167 cm (5' 5.75 ) Gen: A&O, NAD, non-toxic appearing, Pleasant, cooperative, vocal tic present, appears fatigued, slightly pale HEENT: NT/AC, PERRLA, EOMs intact b/l, nares clear and patent b/l, pharynx without erythema, exudate or lesions. Uvula midline. MMM, EACs without erythema or debris. TMs pearly fitzpatrick with intact landmarks b/l. Neck: supple, No cervical LAD, no thyromegaly, no carotid bruits CV: RRR, normal S1 and S2, 2/6 HSM RUSB soft b lowing murmurs, no gallops, no rubs, Pulses 2+ and symmetric in UE and LE b/l Lungs: normal respiratory effort, CTA b/l, no wheezing or rhonchi or rales Abd: soft, overweight, NT, ND, +BS, no hepatosplenomegaly MS: FROM all 4 extremities Neuro: CN II-XII intact b/l Skin: warm, dry, intact, No rashes or lesions on exposed skin. Wearing glasses No edema ASSESSMENT/PLAN: 1. Well adult exam - ICD9: V70.0, ICD10: Z00.00 (primary diagnosis) - Counseled on healthy diet and regular exercise - Colorectal cancer screening recommended - screening declined - COMP METABOLIC PANEL - CBC + DIFF - MAGNESIUM BLD - TSH BLD - VITAMIN D 25 HYDROXY - VITAMIN B12 BLOOD - T4 FREE/FREE THYROX - HGB A1C - LIPID PANEL BASIC 2. Situational anxiety - ICD9: 300.09, ICD10: F41.8 rx refilled, chronic, stable - ALPRAZOLAM 1 MG TABLET 3. IFG (impaired fasting glucose) - ICD9: 790.21, ICD10: R73.01 Recheck labs as ordered, need for weight loss. - HGB A1C 4. Hyperlipidemia, mixed - ICD9: 272.2, ICD10: E78.2 - to be determined upon return of lab results - Encouraged following a low fat, low cholesterol diet. - Discussed the benefits of regular aerobic exercise and weight loss. - COMP METABOLIC PANEL - CBC + DIFF - LIPID PANEL BASIC Ryan Mesa DO To ER if develops chest pain, shortness of breath, or severe worsening of symptoms. Discussed risks, benefits, alternatives, and potential side effects of medications. Patient expressed understanding and agreed with the plan. Ryan Mesa DO [address] [place] [address] documented in this encounter [facility] 02-08-2022 Miscellaneous Notes Please advise last appointment was year ago 10/10/21 and I do not see where letter was generated for handicap plaq Felipa Sher Ma documented in this encounter [facility] documented as of this encounter (statuses as of 02/08/2022) [facility] History of Past illness Narrative* Problem Noted Date Resolved Date Elevated cholesterol 06/19/2010 11/11/2015 Vomiting 06/09/2009 02/23/2014 Mixed hyperlipidemia 02/08/2007 11/11/2015 documented as of this encounter (statuses as of 09/06/2022) [facility] History of Past illness Narrative* Problem Noted Date Resolved Date Elevated cholesterol 06/19/2010 11/11/2015 Vomiting 06/09/2009 02/23/2014 Mixed hyperlipidemia 02/08/2007 11/11/2015 documented as of this encounter (statuses as of 09/20/2022) [facility] Diagnosis Well adult exam- Primary Routine general medical examination at a health care facility Situational anxiety Other anxiety states IFG (impaired fasting glucose) Impaired fasting glucose Hyperlipidemia, mixed Mixed hyperlipidemia [facility] Diagnosis Hx of repair of dissecting thoracic aortic aneurysm, [place] type A- Primary Essential hypertension Unspecified essential hypertension 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 (HCC)- Primary Coronary artery disease involving [place] coronary artery of [place] heart with angina pectoris (HCC) [facility]* Diagnosis Coronary artery disease involving [place] coronary artery of [place] heart with angina pectoris (HCC)- Primary documented in this encounter [facility]* Diagnosis Hx of repair of dissecting thoracic aortic aneurysm, [place] type A- Primary documented in this encounter [facility]* Diagnosis Coronary artery disease involving [place] coronary artery of [place] heart with angina pectoris (HCC)- Primary Coronary artery disease involving [place] coronary artery of [place] heart with angina pectoris (HCC) Stented coronary artery Postsurgical percutaneous transluminal coronary angioplasty status Coronary artery disease involving [place] coronary artery of [place] heart with angina pectoris (HCC) [facility] Consultation (Routine) - Pending Review Specialty Diagnoses / Procedures Referred By Contact Referred To Contact Cardiac Rehabilitation / Cardiology Diagnoses Stented coronary artery Procedures DC OFFICE/OUTPATIENT NEW HIGH MDM 60 MINUTES Nadiya Purcell APRN - CNP [address] [place] [address] [facility] [address] [place] [address] Referral ID Status Reason Start Date Expiration Date Visits Requested Visits Authorized [id number] Pending Review Specialty Services Required 08/15/2023 08/14/2024 1000 1000 [facility] Assessments Diagnosis Essential hypertension - Ana marii Unspecified essential hypertension Diagnosis Cerebellar stroke - Primary Dissection of aorta, unspeci fied portion of aorta Atherosclerosis of [place] co ronary artery of [place] heart without angina pectoris Diagnosis Essential hypertension- Primary Unspecified essential hypertension Diagnosis CY (acute kidney injury) (HCC) Acute kidney failure, unspecified Obstruction of right ureter Calculus, ureter Calculus of ureter Diagnosis Hydronephrosis of right kidney Hydronephrosis History of Present Illness * Angella Torres APRN-CNP - 05/16/2018 1:00 PM EST Formatting of this note may be different from the original. Mara Ascencio is a 57 y.o. male who was seen in follow-up at the [facility] on 05/16/2018 . Mr. Ascencio has a h/o Type A aortic dissection s/p proximal arch repair with residual descending flap complicated by a cerebellar stroke in September 2015, RCC s/p nephrectomy, HTN, and HLD. He previously followed with Dr. Oshea in [place]. He was initially evaluated by Dr. Garcia on October 03, 2017. At that time, he complained of increased BP and worsening SANTANA/chest pressure. Dr. Garcia arranged for direct admission for further evaluation. He was admitted October 03- 2017. LHC showed non-obstructive disease. Chest pain was feltto be secondary to hypertensive urgency, and antihypertensives were adjusted. Patient was also diuresed given 30 pound weight gain over the previous six months. CT surgery was consulted as CT angiogram showed his old dissection repair, extension of dissection into the left subclavian artery. Tight control of hypertension with SBP <130 recommended. I last saw Mr. So on October 31, 2017. We adjusted BP medications at that time. He was scheduled this morning with CT surgery, but was bumped due to an emergency procedure. Dr. Car was able to review his CT and indicates the dissection looked stable and a 6 month follow up with CTA would be adequate. He reports that BP has been fluctuating with SBP mostly in the 130s, but occasionally higher in to the 150s (reviewed records from home). He reports that he traditionally has more issues with change to winter season related to PTSD with increased panic attacks and hallucinations. His PCP recently started Lexapro, which he typically needs just in the winter. He denies chest pain, but has mild exertional shortness of breath that is stable. He was previously on amlodipine 10mg daily, but this was decreased over the summer when he complained of lower extremity edema. Wearing compression stockings helped, but they were uncomfortable in the summer. Cardiovascular ROS: negative for - edema, syncope, palpitations, orthopnea, or paroxysmal nocturnaldyspnea 12-point ROS reviewed with patient and can be found in written chart PMHx CAD s/p PCI in [facility] 10/2015 (after dissection) Anxiety; Asthma; Depression; GERD (gastroesophageal reflux disease); History of kidney cancer s/p L nephrectomy 2005 HTN (hypertension); BRIGITTE (obstructive sleep apnea) on CPAP CVA (during dissection), emotional residual PSHx nephrectomy (Left); repair ascending aorta aneurysm w/ aortic root replacement (bentall) (Midline, 10/04/2015); Neck surgery, titanium in neck Social Nonsmoker No ETOH Retired, 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 [place] Family + CAD, maternal side Allergies Allergen Reactions Zestril [Lisinopril] Intolerance: the patient states he has debilitating headaches, hypertension, and suicidal thoughts a few weeks after starting the medication Zoloft [Sertraline] Hives, Confusion, Dizzy/Vertigo, Drowsy/Sedated and Hypertension Tolerates lexapro PRN, however, states he has had hallucinations Coreg [Carvedilol] Intolerance: the patient states he has debilitating headaches and hypertension a few weeks after starting the medication Erythromycin Headache Hydralazine Intolerance: the patient states he has debilitating headaches and hypertension a few weeks after starting the medication Nifedipine Intolerance: the patient states he has debilitating headaches and hypertension a few weeks after starting the medication Sulfa Antibiotics Hives, Confusion and Headache Physical Exam Blood pressure 130/72, pulse 86, height 1.676 m (5' 6 ), weight 90.6 kg (199 lb 12.8 oz). General appearance: alert, cooperative, appears stated age Head: Normocephalic, without obvious abnormality, atraumatic Eyes: conjunctivae/corneas clear. Neck: + carotid bruit (radiating from chest) and no JVD Lungs: clear to auscultation bilaterally Chest wall: no tenderness Heart: regular rate and rhythm, S1, S2 normal, 2/6 early DONG radiating to neck; PMI discrete, non-displaced; no RV lift Abdomen: soft, non-tender. Bowel sounds normal. No masses, no organomegaly Extremities: extremities normal, atraumatic, no cyanosis , trace lower extremity edema Skin: Skin color, texture, turgor normal. No rashes or lesions Neurologic: Grossly normal Current Outpatient Prescriptions Medication Sig acetaminophen 325 MG tablet take 1-2 tablets by mouth every 4 hours as needed for Mild Pain or Fever. Maximum dose of acetaminophen is 4000 mg from all sources in 24 hours. ALPRAZolam 0.5 MG Tab tablet Take 0.5 mg by mouth 3 times daily as needed for Sleep. amLODIPine (NORVASC) 5 MG Tab tablet Take 1 tablet by mouth daily. aspirin 81 MG Chew Tab chewable tablet Chew 1 tablet daily. atorvastatin 80 MG Tab tablet Take 1 tablet by mouth at bedtime. clopidogrel 75 MG Tab tablet Take 1 tablet by mouth daily. escitalopram 10 MG Tab Take 10 mg by mouth daily as needed. furOSEmide 20 MG Tab tablet Take 1 tablet by mouth daily. labetalol 300 MG Tab Take 1 tablet by mouth every 12 hours. nitroGLYCERIN 0.[address] 1 tablet under tongue every 5 minutes as needed for Chest pain. max = 3 doses. If CP persists after 1st dose, call 911 [address] tablet Take 1 tablet by mouth daily. potassium chloride 10 MEQ Cap CR Take 1 capsule by mouth daily. Cath 11/07/15 [place] Angiography: - Right dominant coronary circulation. - mid LAD 40% - mid Cx 30% - There was a 90% lesion in the distal RCA. - Coronary anatomy as described in detail below. Intervention: - The RCA was predilated with a coronary balloon. It was then stented with a 3.50 mm x 16 mm Synergy (drug-eluting) stent. Pharm Mibi 08/30/16 [place] No ischemia/scar Normal EF Echo 08/30/16 [place] Normal EF EKG 10/03/17 NSR, rsr' in v1, otherwise normal EKG Transthoracic Echocardiogram 10/04/17 1. There is no hemodynamically significant valvular disease. 2. The left ventricular chamber size is normal.Regional wall motion is normal. The estimated ejection fraction is 55-60%, consistent with normal systolic function. 3. Normal left ventricular diastolic filling is observed. 4. The right ventricular global systolic function is normal. 5. There is mild dilatation of the aortic root. Ascending aortic Hemashield graft (28 mm) for a type A dissection. 6. There is a dissection flap extending from the distal aortic arch to the descending aorta. CT Angio Chest 10/04/17 1. Status post ascending thoracic aorta repair with interposition graft, and residual type B aortic dissection extending into the abdominal aorta. Aortic diameters are normal as described above. 2. Dissection extension into the proximal left subclavian artery. 3. Coronary artery atherosclerosis. 4. Small round periesophageal lesion, which could represent either an enlarged lymph node of unclear etiology or an esophageal duplication cyst. CT Angio Pelvis 10/05/17 Aortic dissection extends distally to just below the right renal artery. The celiac axis and superior mesenteric artery originate from the true lumen while the inferior mesenteric artery originates below the level of the dissection. The right renal artery is associated with fenestration and its flow, from both the true and false lumen. Soft tissue density in the left renal fossa may represent recurrence of the renal cell carcinoma which prompted the left nephrectomy. Multiple low-attenuation lesions in the liver are most consistent with hepatic cysts. LHC/Angiographic summary 10/08/17: There was moderate LAD and circumflex disease with negative FFR. IVUS of Left Main showed MLA of 10.7mm2 There was a proximal and mid LAD stenosis (65%). FFR was 0.95 post IV adenosine There was 70% mid circumflex stenosis. FFR was 0.92 post IV adenosine Ostial left main with 40% stenosis with IVUS showing MLA of 10.7mm2 Patent distal RCA stent with mild non-obstructive RCA stenosis. Right dominant system LVEDP was 7mmHg. No LV-Ao gradient with pullback In summary, Mara Ascencio is a very pleasant 57 y.o. h/o Type A aortic dissection s/p proximal arch repair with residual descending flap complicated by a cerebellar stroke in September 2015, RCC s/p nephrectomy, HTN, and HLD. He sought a second opinion from Dr. Garica for complaints of escalating angina, dysphagia and hypertensive urgency. He was admitted for further work-up. LHC showed non-obstructive disease. Chest pain was felt to be secondary to hypertensive urgency, and antihypertensives were adjusted. Patient was also diuresed given 30 pound weight gain over the previous six months. CT surgery was consulted as CT angiogram showed his old dissection repair, extension of dissection into the left subclavian artery. Tight control of hypertension with SBP <130 recommended. He will follow-up with repeat CT. 1) CAD - LHC (September 2017) with non-obstructive disease and patent RCA stent, angina resolved with control of BP 2) Hypertension. Acceptable in the office, but elevated at home, reports BP is typically higher in the winter related to seasonal affective disorderl, h/o dissection, so SBP <130 - He's had intolerances to a number of medications in the past. Creatinine elevated today, but drawn fasting. Will repeat chem6 in 2 weeks or so. For now, increase amlodipine to 7.5mg daily, compression stockings as necessary. If chem6 improves, could consider adding chlorthalidone. He's taking furosemide prn, but potassium daily. 3) Type A aortic dissection s/p proximal arch repair with residual descending flap, now with dissection into left subclavian artery, scheduled for repeat CT scan and follow-up with vascular surgery in six months. 4) Hyperlipidemia - continue atorvastatin 80mg daily. I appreciate the opportunity to see Mara Ascencio in clinic. He's going to monitor BP at home and contact the office with results. Will plan follow-up in six months. in this encounter* Eleazar Martell MD - 01/24/2020 10:38 AM EDT [facility] Progress Note SUBJECTIVE: Mara Ascencio is a 59 y.o. male who is being followed by nephrology for CY CKD . Any overnight events - none POD1 R ureteroscopy with ureteral stent placement Medications Scheduled Meds: labetalol 300 mg Oral BID ursodiol 300 mg Oral TID sodium chloride flush 10 mL Intravenous 2 times per day pantoprazole 40 mg Oral QAM AC cefTRIAXone (ROCEPHIN) IV 1 g Intravenous Q24H clopidogrel 75 mg Oral Daily heparin (porcine) 5,000 Units Subcutaneous 3 times per day aspirin 81 mg Oral Daily tamsulosin 0.4 mg Oral Daily Continuous Infusions: sodium bicarbonate infusion 100 mL/hr at 01/24/20 0004 Prn Meds : ALPRAZolam, sodium chloride flush, acetaminophen OR acetaminophen, polyethylene glycol, promethazine OR ondansetron Home Meds: No current facility-administered medications on file prior to encounter. Current Outpatient Medications on File Prior to Encounter Medication Sig Dispense Refill ursodiol (ACTIGALL) 250 MG tablet Take 250 mg by mouth 3 times daily ASPIRIN 81 PO Take 81 mg by mouth daily labetalol (NORMODYNE) 300 MG tablet Take 300 mg by mouth 2 times daily clopidogrel (PLAVIX) 75 MG tablet Take 75 mg by mouth daily ALPRAZolam (XANAX) 0.5 MG tablet Take 0.5 mg by mouth 2 times daily as needed. furosemide (LASIX) 20 MG tablet Take 20 mg by mouth daily as needed OBJECTIVE Physical BP (!) 148/74 Pulse 65 Temp 96.8 F (36 C) (Temporal) Resp 17 Ht 5' 5 (1.651 m) Wt 195 lb14.4 oz (88.9 kg) SpO2 94% BMI 32.60 kg/m 24HR INTAKE/OUTPUT: Intake/Output Summary (Last 24 hours) at 01/24/2020 1038 Last data filed at 01/24/2020 0513 Gross per 24 hour Intake 850 ml Output 2375 ml Net -1525 ml General: AAO x 3, speaking in full sentences, no accessory muscle use. HEENT: Atraumatic, normocephalic, no throat congestion, moist mucosa. Eyes: Pupils equal, round and reactive to light, EOMI. Neck: No JVD, no thyromegaly, no lymphadenopathy. Chest: Bilateral vesicular breath sounds, no rales or wheezes. Cardiac: S1 S2 RR, no murmurs, gallops or rubs, JVP not raised. Abdomen: Soft, non-tender, no masses or organomegaly, BS audible. : No suprapubic or flank tenderness. Neuro: AAO x 3, No FND. SKIN: No rashes, good skin turgor. Data Last 3 CMP: Recent Labs 01/23/20 0205 01/24/20 0010 NA 137 141 K 3.7 4.0 CL 105 109* CO2 20* 23 BUN 46* 37* CREATININE 6.99* 2.57* CALCIUM 8.3* 8.4 PROT 6.4 6.1* LABALBU 3.8 3.5 BILITOT 0.6 0.3 ALKPHOS 45 46 AST 16 21 ALT 13 12 Last 3 CBC: Recent Labs 01/23/20 0205 01/24/20 0010 WBC 14.9* 10.2 RBC 4.64 4.52 HGB 13.4 13.0 HCT 38.7* 36.9* MCV 83.3 81.7 MCH 28.8 28.7 MCHC 34.6 35.1 RDW 13.4 13.1 PLT 160 191 MPV 8.9 8.9 ASSESSMENT Patient Active Problem List Diagnosis Date Noted CY (acute kidney injury) (HCC) 01/23/2020 Obstruction of right ureter Calculus, ureter ASSESSMENT/PLAN: 59 y.o. male with PMH after RCC s/p complete nephrectomy creatinine baseline 1.2 now with rt obstructive uropathy JACQUELINE class III ARF-found to have a right distal ureteral calculus on CT scan; POD1 R ureteroscopy with ureteral stent placement -Keep MAP.65 - NO pernell and NSAID -avoid IV contrast -CD via santana -IV bicarbonate fluid RTA due to obstructive uropathy and aldosterone resistance - creatinine improved -Good UO -Need stent and stone removal Ok to [facility] home today Eleazar Martell MD 01/24/2020 10:38 AM * Marlon Rincon MD - 01/24/2020 9:15 AM EDT UROLOGY PROGRESS NOTE PATIENT NAME: Mara Ascencio DATE OF : 1960 ADMISSION DATE: 01/22/2020 11:50 PM TODAY'S DATE: 01/24/2020 Subjective No acute events overnight. Pain much improved Urinating appropriately Denies fevers, chills, nausea and vomiting Objective VS: BP (!) 148/74 Pulse 65 Temp 96.8 F (36 C) (Temporal) Resp 17 Ht 5' 5 (1.651 m) Wt 195 lb 14.4 oz (88.9 kg) SpO2 94% BMI 32.60 kg/m Vitals: 01/24/20 0719 BP: (!) 148/74 Pulse: 65 Resp: 17 Temp: 96.8 F (36 C) SpO2: 94% I & O - 24hr: Intake/Output Summary (Last 24 hours) at 01/24/2020 0915 Last data filed at 01/24/2020 0513 Gross per 24 hour Intake 850 ml Output 3075 ml Net -2225 ml Physical Exam: General: Neck: Resp: Abdomen: No acute distress Supple Normal effort Soft, non-tender, obese : No cva tenderness Skin: Skin color, texture, turgor normal, no rashes or lesions Labs and Imaging Studies Labs: CBC: Recent Labs 01/23/20 0205 01/24/20 0010 WBC 14.9* 10.2 HGB 13.4 13.0 HCT 38.7* 36.9* MCV 83.3 81.7 PLT 160 191 BMP: Recent Labs 01/23/20 0205 01/24/20 0010 NA 137 141 K 3.7 4.0 CL 105 109* CO2 20* 23 BUN 46* 37* CREATININE 6.99* 2.57* Magnesium: No results found for: MG Phosphate: No results found for: PHOS PT/INR: No results for input(s): PROTIME, INR in the last 72 hours. U/A: Lab Results Component Value Date LEUKOCYTESUR 500 01/23/2020 WBCUA >100 01/23/2020 RBCUA >100 01/23/2020 BACTERIA Few 01/23/2020 GLUCOSEU Normal 01/23/2020 Urine Culture: Component Value Date/Time LABURIN No growth (<1,000 CFU/ml). 01/23/2020 0605 Assessment and Plan ASSESSMENT: 59 y.o. male with hx RCC s/p left nephrectomy (2005) presented with anuria and right flank pain since , found to have a right distal ureteral calculus on CT scan; POD1 R ureteroscopy with ureteral stent placement PLAN: - pain improved, patient feels much better this morning - urinating appropriately - leukocytosis improved - UA with few bacteria, urine culture pending - on rocephin - creatinine much improved (6.99 -> 2.57) - ok for discharge on antibiotics from standpoint - no further intervention indicated - outpatient follow-up with Dr. Rincon for stent removal in office - will discuss with attending Juan Randolph 01/24/2020 9:15 AM Seen and independently evaluated by me. Discussed with the urology resident. I concur with the assessment and plan. Will see in office for stent removal Marlon Rincon M.D. 01/24/2020 * Erica Torres DTR - 01/24/2020 8:44 AM EDT Nutrition rescreen completed. Chart reviewed. Patient to be monitored and followed by the diet hydroelectric plant technician. Dietitian available upon request. * Yadira Mccracken RN - 01/23/2020 2:25 PM EDT Report called to Louise [facility] on [facility] * Tasneem Kumar RN - 01/22/2020 11:45 PM EDT Pt arrived to 1C room 130 from [facility]. Pt ambulated independently from cot to bed. VSS. Alert and oriented. Santana in place. Oriented to room and call light. Doesn't want called at this time.Will continue to monitor pt. documented in this encounter Hospital Course Note Discharge Summary Mara gibson : 1960 ADMIT DATE: 01/22/2020 DISCHARGE DATE: 01/24/2020 PRIMARY CARE PHYSICIAN: No primary care provider on file. VISIT STATUS: Admission CODE STATUS: Full Code DISCHARGE DIAGNOSES: Active Problems: CY (acute kidney injury) (HCC) Obstruction of right ureter Calculus, ureter Resolved Problems: * No resolved hospital problems. * cy on ckd 3 R hydronephrosis HOSPITAL COURSE: Admitted for R HYDRONEPHROSIS with post obstructive nephropathy, urology and nephrology consulted, s/p stent placement, on antibiotics for uti, urine cultures pending, sym resolved, stable and discharged. CONSULTANTS: Urology, nephrology DISCHARGE MEDICATIONS: Mara Ascencio Home Medication Instructions THELMA:[id number] Printed on:01/24/20 2702 Medication Information ALPRAZolam (XANAX) 0.5 MG tablet Take 0.5 mg by mouth 2 times daily as needed. ASPIRIN 81 PO Take 81 mg by mouth daily cephALEXin (KEFLEX) 250 MG capsule Take 1 capsule by mouth 2 times daily clop (more content not included)... Discharge Instructions * Instructions* Syd De Anda MD - 01/24/2020 Laser Lithotripsy These are general instructions for you to follow after your surgery. Your doctor or a member of hisor her staff will outline any additional or special instructions that pertain to you. What is a Laser Lithotripsy? A laser lithotripsy is a method for using lasers to remove stones that are located in the urinary tract. This could include stones in the bladder, kidneys, ureters, or urethra. A small flexible camera called a ureteroscope is inserted into the urethra and up the ureter until it reaches the locationof the kidney stone. The doctor can then use a laser to break up a kidney stone and a small basket to remove small stones or stone fragments. A ureteral stent is often left in place after the procedure to help with healing. W are the advantages of laser lithotripsy? Laser lithotripsy is a minimally invasive procedure, anddoes not involve any incisions. It has been shown to be effective no matter the size, location, and/ or hardness of the stone. It also reduces the risk of steinstrasse (where several stones fragmentsline up in the ureter and block urine flow). How long does surgery take? Surgery will take 1-2 hours to complete. Will I have to stay in the hospital? No. This is an outpatient procedure, so you should be able to go home the same day that the procedure is performed. Are there risks with a laser lithotripsy procedure? There are risks with any surgical procedure. Risks of laser lithotripsy in particular include pain, blood in the urine, difficulty urinating, injury to the bladder or ureters when removing the stone, and infection. General anesthesia also has the risk of breathing problems, heart attack and stroke in patients who are high risk. Home Going Instructions: Activity: You are encouraged to walk every day, increasing the distance each day. You may go up anddown steps, but please rest when you are tired. - Do NOT drive for 2-3 weeks after surgery or until you are not taking pain medications. You may ride in a car or plane. Be sure to get up and walk every 1- 2 hours when traveling long distances. - Avoid strenuous activity for 2-4 weeks after surgery (running, jumping, lifting more than 10 lbs.) Diet and Fluid Intake: Eating a well balanced diet is important. If you were on a specific diet before your surgery, you should return to that diet. Otherwise, there are no diet restrictions after surgery. - Do NOT drink alcoholic beverages while taking pain medications. - Drink at least 8 glasses of fluid per day, preferably water. Bowel Management: Constipation sometimes occurs after surgery, especially when taking pain medication. Eating a well-balanced diet and maintaining a good fluid intake are often all that is necessary to return to you pre-surgical bowel regimen. - It is important not to strain excessively when having a bowel movement for the first several weeks following your surgery. A stool softener such as Colace may be helpful. You can purchase stool softeners without a prescription at your local drug store. - If a stool softener is not enough to relieve your constipation, you may try taking Milk of Magnesia. - You may use over the counter medicine, such a Gas-X, if you experience gas pains after surgery. Ureteral Stent: Most people experience some discomfort with a stent in place. Common symptoms include back pain, urinary frequency and urgency. You may see some blood off and on in your urine, especially after you are active. While these symptoms are common with a stent, if you are having a lot of pain, please call our office to discuss your symptoms. Showering: You may shower when you get home from the hospital. Please avoid swimming, hot tubs and baths for 2-3 weeks after your procedure. Pain Medications: Your doctor will prescribe the appropriate pain medication for you. Take these pills only as directed and only if you need them. If you are experiencing mild discomfort, you may take Tylenol or Ibuprofen. - NEVER mix alcohol with prescription pain medications. - Pain medication may make you drowsy. Do not take pain medication when doing any activity that requires coordination, such as driving. Infection: Report the following warning signs of infection to your doctor immediately: o A temperature of 101 degrees or greater o Unable to urinate. o Sudden onset of increased pain or tenderness o Increased amount of blood in the urine, or passing large blood clots Miscellaneous - It is normal for you to have minor discomfort after your surgery. However, if there are any significant changes in your condition such as shortness of breath, difficulty breathing, or pain or uneven swelling in your legs please go to the Emergency Room. Return to Work: If you work in an office and are not lifting or doing strenuous activity, you may return to work when comfortable. If your work involves strenuous activity, you may need more time before returning to work. - If necessary, our office can provide a letter stating the date that you may return to work. Follow-up Appointments - Follow-up appointments will be scheduled by our office. If you have any questions, please call . documented in this encounter Advance Directives Documents on File Type Date Recorded Patient Accounting Director Expl anation Advance Directives and Living Will Power of Skid Adzer Latest Code Status on File Code Status Date Activated Date Inactivated Comments Full Code 01/23/2020 12:58 AM Documents on File Type Date Recorded Patient Accounting Director Expl anation Advance Directives and Living Will Power of [place]id [place] Latest Code Status on File Code Status Date Activated Date Inactivated Comments Full Code 01/23/2020 12:58 AM 01/24/2020 6:38 PM Documents on File Type Date Recorded Patient Accounting Director Expl anation Advance Directive(s) 08/01/2011 Advance Directive(s) 08/15/2006 Latest Code Status on File Code Status Date Activated Date Inactivated Comments Full Code 08/15/2023 8:29 AM Latest Code Status on File Code Status Date Activated Date Inactivated Comments Full Code 08/15/2023 8:29 AM 08/15/2023 6:14 PM Latest Code Status on File Code Status Date Activated Date Inactivated Comments Full Code 08/15/2023 8:29 AM 08/15/2023 6:14 PM Reason for Referral Status Reason Specialty Diagnoses / Procedures Re ferred By Contact Referred To Contact Open Radiology Diagnoses Hydronephrosis of right kidney Procedures US RETROPERITONEAL LIMITED Marlon Rincon MD [address] [place] [address] Specialty Diagnoses / Procedures Referred By Contac t Referred To Contact Radiology Diagnoses Hx of repair of dissecting thoracic aortic aneurysm, [place]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 Procedures CTA chest abdomen pelvis angiogram w and/or wo contrast Nadiya Purcell, DIRECTOR [facility] [address] [place] [address] Referral ID Status Reason Start Date Expiration Date V isits Requested Visits Authorized [id number] Pending Review 08/15/2023 08/14/2024 1 1 Summary Purpose Family History No Family History Records FoundNo Family History Records FoundNo Family History Records FoundNo Family History Records FoundNo Family History Records FoundNo Family History Records Found Additional Source Comments Reason for Visit (unrecogniz ed section and content) Reason Comments Follow-up Reason Comments Lab Review Reason Comments Medication Refill Reason Comments Yearly Exam Specialty Diagnoses / Procedures Referred By Minh t Referred To Contact Family Medicine / FAMILY MEDICINE Diagnoses Refill meds & yearly check-up Procedures OFFICE/OUTPATIENT ESTABLISHED MOD MDM 30-39 MIN MYC OFFICE VISIT Self Ryan Mesa L, DO [address] [place] [address] Referral ID Status Reason Start Date Expiration Date Visits Re quested Visits Authorized [id number] Denied 09/05/2022 2022 1 0 Reason Comments Orders Reason Comments New Patient Reason Onset Date Comments Procedure 08/07/2023 [facility] Specialty Diagnoses / Procedures Referred By Minh t Referred To Contact Diagnoses 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 (HCC) [I25.119] Procedures Left heart cath / coronary angiography Peg Reis MD [address] [place] [address] [facility] [address] [place] [phone] Referral ID Status Reason Start Date Expiration Date Visits Re quested Visits Authorized [id number] 1 1 Reason Onset Date Comments Med Management 08/19/2023 (unrecognized sect ion and content) No Status Records FoundNo Status Records FoundNo Status Records FoundNo Status Records FoundNo Status Records FoundNo Status Records Found INFORMATION SOURCE (unrecogn ized section and content) DATE CREATED AUTHOR AUTHOR'S ORGANIZ ATION 03/11/2020 [facility] DATE CREATED AUTHOR AUTHOR'S ORGANIZ ATION 10/31/2020 [facility] DATE CREATED AUTHOR AUTHOR'S ORGANIZ ATION 07/23/2021 [facility] DATE CREATED AUTHOR AUTHOR'S ORGANIZ ATION 09/21/2022 [facility] DATE CREATED AUTHOR AUTHOR'S ORGANIZ ATION 08/20/2023 [facility] Source Comments (unrecognize d section and content) In the event this informatio n is protected by the Federal Confidentiality of Alcohol and Drug Abuse Patient Records regulations: The Federal rules restrict any use of the information to criminally investigate or prosecute any alcohol or drug abuse patient.[facility] Health[facility] the event this information is protected by the Federal Confidentiality of Alcohol and Drug Abuse Patient Records regulations: The Federal rules restrict any use of the information to criminally investigate or prosecute any alcohol or drug abuse patient.[facility] Health[facility] the event this information is protected by the Federal Confidentiality of Alcohol and Drug Abuse Patient Records regulations: The Federal rules restrict any use of the information to criminally investigate or prosecute any alcohol or drug abuse patient.[facility] Care Teams (unrecognized sec tion and content) Technology Officer Relationship Specialty Start Date End Date Ryna Mesa, DO [address] [place] [address] PCP - General Family Medicine 03/23/14 Technology Officer Relationship Specialty Start Date End Date Ryan Mesa DO [address] [place] [address] PCP - General Family Medicine 03/23/14 Technology Officer Relationship Specialty Start Date End Date Ryan Mesa [address] [place] [address] PCP - General 02/09/20 Technology Officer Relationship Specialty Start Date End Date Ryan Mesa [address] [place] [address] PCP - General 02/09/20 Technology Officer Relationship Specialty Start Date End Date Ryan Mesa [address] [place] [address] PCP - General 02/09/20 Technology Officer Relationship Specialty Start Date End Date Ryan Mesa [address] [place] [address] PCP - General 02/09/20 Technology Officer Relationship Specialty Start Date End Date Ryan Mesa [address] [place] [address] PCP - General 02/09/20 Technology Officer Relationship Specialty Start Date End Date Ryan Mesa [address] [place], [place] [address] PCP - General 02/09/20 Technology Officer Relationship Specialty Start Date End Date Ryan Mesa [address] [place], [place] [id number] PCP - General 02/09/20 Scheduled Active and Recently Administ ered Medications (unrecognized section and content) Continuous Medication Order 08/13/2023 08/14/2023 08/15/2023 sodium chloride 0.9 % infusion 252 mL/hr, IntraVENous, Continuous, Starting on Mandy 08/15/23 at 0830, For 1 hour, Preprocedure 0845 (New Bag - Prov ider: Carmen Magdaleno RN) PRN Medication Order 08/13/2023 08/14/2023 08/15/2023 acetaminophen (Tylenol) tablet 650 mg 650 mg, Oral, Every 4 hours PRN, mild pain (1-3), Fever > 100.5 F (38 C), Starting on Mandy 08/15/23 at 1334, Recovery & On Unit, Maximum dose of acetaminophen is 4000 mg from all sources in 24 hours. 1430 (Given - Provid er: Carmen Magdaleno RN) fentaNYL (Sublimaze) injection (CANCELED) IntraVENous, As needed, Starting on Mandy 08/15/23 at 0916, Intraprocedure 0916 (Given - Provid er: Lucretia Krishnamurthy RN) heparin injection (CANCELED) IntraVENous, As needed, Starting on Mandy 24 at 0916, Intraprocedure 0916 (Given - Provid er: Lucretia Krishnamurthy RN)0952 (Given - Provider: Lucretia Krishnamurthy RN) iopamidol (Isovue-300) 61 % injection (CANCELED) As needed, Starting on Mandy 08/15/23 at 1031, Intraprocedure 1031 (Given - Provid er: Colten Ponce MD) lidocaine (Xylocaine) 1 % injection (CANCELED) As needed, Starting on Mandy 08/15/23 at 0914, Intraprocedure 0914 (Given - Provid er: Bijan Benavides MD) midazolam (Versed) injection (CANCELED) IntraVENous, As needed, Starting on Mandy 08/15/23 at 0916, Intraprocedure 0916 (Given - Provid er: Lucretia Krishnamurthy RN) NITROGLYCERIN 1000 MCG / 10 ML SYRINGE (CHARGE ONLY) (CANCELED) As needed, Starting on Mandy 08/15/23 at 0914, Intraprocedure 0914 (Given - Provid er: Bijan Benavides MD)1025 (Given - Provider: Colten Ponce MD) sodium chloride 0.9 % infusion 5-250 mL/hr, IntraVENous, PRN, if patient receiving piggyback infusions and maintenance fluids are not ordered OR KVO fluids to protect IV site / prevent frequent line interruptions / long duration, Starting on Mandy 08/15/23 at 0829, Preprocedure, For piggyback infusion, administer at same rate as piggyback for a total of 25 mL. Enter 25 mL into dose field and piggyback rate into rate field of order. If piggyback is infusing at a rate less than 100 mL/hr, enter 25 mL into dose field and 100 mL/hr into rate field of order. For KVO fluids, enter rate of 20 mL/hr or less into rate field of order. sodium chloride 0.9% (NS) flush 5-40 mL 5-40 mL, IntraVENous, PRN, line care, After every IV line use, Starting on Mandy 08/15/23 at 0829, Preprocedure, For Line Patency: Peripheral IV = 5 mL; Midline or Central Line = 10 mL/lumen. If following IV push medication, administer flush at same rate as the IV push. Flush volume is determined by type of infusion therapy being given. For non-viscous solutions use: Peripheral IV = 5 mL Midline or Central Line = 10 mL/lumen For viscous solutions (i.e. blood components, parenteral nutrition, contrast media, or after obtaining blood sample) use: Peripheral IV = 10 mL Midline or Central Line = 20 mL/lumen ticagrelor (Brilinta) tablet (CANCELED) Oral, As needed, Starting on Mandy 08/15/23 at 0947, Intraprocedure 0947 (Given - Provid er: Lucretia Krishnamurthy RN) verapamil (Isoptin) injection (CANCELED) As needed, Starting on Mandy 08/15/23 at 0915, Intraprocedure 0915 (Given - Provid er: Bijan Benavides MD) FOR RECORDS PERTAINING TO PATIENTS WHO ARE OR HAVE BEEN ENROLLED IN A CHEMICAL DEPENDENCY/SUBSTANCEABUSE PROGRAM, SOME INFORMATION MAY BE OMITTED. This clinical summary was aggregated from multiple sources. Caution should be exercised in using it in the provision of clinical care. This summary normalizes information from multiple sources, and as a consequence, information in this document may materially change the coding, format and clinical context of patient data. In addition, data may be omitted in some cases. CLINICAL DECISIONS SHOULD BE BASED ON THE PRIMARY CLINICAL RECORDS. [employer] provides no warranty or guarantee of the accuracy or completeness of information in this document.
[2023-08-27 07:16] LABS: Hematocrit 40.5 % (40-54); Hemoglobin 13.7 g/dL (13.0-16.5); Mean Corp Hgb Conc 33.8 g/dL (32-36); Mean Corpuscular Hgb 29.1 pg (27.0-32.0); Mean Platelet Vol. 10.6 fl (6.2-12.0); Platelet Count 201 K/mm3 (150-450); RBC Distribution Width CV 13.3 % (11.6-14.6); RBC Distribution Width SD 41.4 fl (35.1-43.9); Red Blood Count 4.71 M/mm3 (4.6-6.2); White Blood Count 9.5 K/mm3 (4.4-11.0)
[2023-08-27 08:55] LABS: Anion Gap 4 (5-15); BUN 27 mg/dL (7-18); BUN/Creat Ratio 21.1 RATIO (10-20); Chloride 110 mmol/L (98-107); Cholesterol 226 mg/dL (200); Creatinine, Serum 1.28 mg/dL (0.70-1.30); EST Glomerular Filtration Rate 60 mL/min (>60); Est Glom Filt Rate - Afr Amer 73 mL/min (>60); Glucose 99 mg/dL (74-106); High Density Lipoprotein 37 mg/dL; Potassium 3.5 mmol/L (3.5-5.1); Sodium Level 142 mmol/L (136-145); Triglycerides 188 mg/dL; Very Low Density Lipoprotein 38 mg/dL (5-40)
== END | disposition home or self-care (01) ==
PROVIDERS: PCP Student in an Organized Health Care Education/Training Program
DX: I25.119 Atherosclerotic heart disease of native coronary artery with unspecified angina pectoris (principal)
CPT/HCPCS: 36415; 80048; 80061; 85027

== ENCOUNTER → 2024-05-05 | Outpatient (CLI) | payer MEDICARE, OTHER, SELFPAY ==
--- NOTE | 2024-05-05 15:43 | MRI_ITS ---
STUDY: MRI BRAIN WITHOUT CONTRAST REASON FOR EXAM: Male, 63 years old. VERTIGO, WEAKNESS, DIZZINESS TECHNIQUE: Standardized multiplanar fat and water weighted pulse sequences were obtained. COMPARISON: 06/05/2019 FINDINGS: There is moderate cerebral atrophy with widening of the extra-axial spaces and ventricular dilatation. There are multiple white matter hyperintensities, distributed throughout the deep white matter tracts of the cerebral hemispheres, consistent with moderate chronic white matter ischemic changes. There is no evidence for recent intracranial ischemia or other cause of cytotoxic edema on diffusion weighted imaging (DWI). Normal T2* images of the brain without demonstrated susceptibility artifact. There is no demonstrated hemosiderin stain. Normal bilateral basal ganglia. Normal thalami. There is no extra-axial fluid accumulation. Normal flow voids within the major intracranial circulation suggesting patency by spin echo criteria. Normal sella turcica, pituitary gland, infundibular stalk, optic chiasm and hypothalamus. Normal tectal plate and pineal gland. Normal midbrain, vilma and medulla. Normal cerebellum. Normal basal cisterns. Normal bilateral temporal bones. Normal bilateral internal auditory canals. No demonstrated orbital abnormality, within the constraints of a routine brain study. Normal visualized paranasal sinuses. Normal calvarium and skull base. Normal visualized soft tissue structures. Normal visualized upper cervical spine. MRI/Brain without Contrast IMPRESSION: Involutional changes of the brain, as described above. No acute infarct. Electronically Signed: Gallo Nelson MD at 16:44 EST ,
--- NOTE | 2024-05-05 15:44 | MRI_ITS ---
STUDY: MRA OF THE HEAD WITHOUT CONTRAST REASON FOR EXAM: Male, 63 years old. VERTIGO, WEAKNESS, DIZZINESS TECHNIQUE: 3-D [id number] (TOF) imaging was performed with MIPs. The study was performed unenhanced. COMPARISON: None. FINDINGS: Normal bilateral petrous carotid arteries. Normal right cavernous carotid artery with a normal supraclinoid bifurcation. Normal left cavernous carotid artery with a normal supraclinoid bifurcation. Normal right A1 segments of the anterior cerebral artery. Normal left A1 segments of the anterior cerebral artery. Normal intact anterior communicating artery (ACOM). Normal bilateral A2 segments of the anterior cerebral arteries. Normal right M1 and M2 segments of the middle cerebral arteries, with a normal M1 bifurcation. Normal left M1 and M2 segments of the middle cerebral arteries, with a normal M1 bifurcation. Normal right posterior communicating artery (PCOM). Normal left posterior communicating artery (PCOM). Normal bilateral vertebral arteries. Normal basilar artery with a normal basilar bifurcation. The visualized bilateral superior cerebellar (SCA) arteries are normal. Normal bilateral P1, P2 and visualized P3 segments of the posterior cerebral arteries. There is no demonstrated aneurysm of the [place]. There is no major vessel occlusion or hemodynamically significant stenosis. There is no demonstrated abnormality of the visualized brain. MRI/MRA Head ONLY without Contrast IMPRESSION: Normal MRA of the head Electronically Signed: Gallo Nelson MD at 16:45 EST ,
--- NOTE | 2024-05-05 15:45 | MRI_ITS ---
STUDY: MRA NECK WITHOUT CONTRAST REASON FOR EXAM: Male, 63 years old. DIZZINESS, WEAKNESS TECHNIQUE: Source images were obtained, MIPs were performed. The study was performed unenhanced. COMPARISON: None. FINDINGS: RIGHT CAROTID ARTERIES: Normal right common carotid artery (CCA). Normal right common carotid bulb. Normal origin of the right internal carotid (ICA) artery without a hemodynamically significant stenosis. Normal visualized cervical portion of the right internal carotid artery. Normal origin of the right external carotid artery (ECA). LEFT CAROTID ARTERIES: Normal left common carotid artery (CCA). Normal left common carotid bulb. Normal origin of the left internal carotid (ICA) artery without a hemodynamically significant stenosis. Normal visualized cervical portion of the left internal carotid artery. Normal origin of the left external carotid artery (ECA). VERTEBRAL ARTERIES: Normal antegrade flow within the bilateral vertebral artery without a hemodynamically significant stenosis. MRI/MRA Neck without Contrast IMPRESSION: Normal bilateral cervical carotid and vertebral arteries. Electronically Signed: Gallo Nelson MD at 16:49 EST ,
== END | disposition home or self-care (01) ==
PROVIDERS: PCP Student in an Organized Health Care Education/Training Program; Referring Provider Psychiatry & Neurology Neurology; Visit Provider Psychiatry & Neurology Neurology
DX: R42 Dizziness and giddiness (principal); R53.1 Weakness
CPT/HCPCS: 70544; 70547; 70551